=== PATIENT | male | born 1995 | race Caucasian/White ===

== ENCOUNTER → 2020-07-10 12:05 | Outpatient (REF) | payer OTHER, SELFPAY ==
--- NOTE | 2020-07-10 12:12 | ECG_ITS ---
Test Reason : OPIOD ABUSE Blood Pressure : / mmHG Vent. Rate : 072 BPM Atrial Rate : 072 BPM P-R Int : 144 ms QRS Dur : 082 ms QT Int : 410 ms P-R-T Axes : 042 070 006 degrees QTc Int : 448 ms Normal sinus rhythm with sinus arrhythmia T wave abnormality, consider anterior ischemia Abnormal ECG When compared with ECG of 05-JAN-2019 13:24, No significant changes seen Referred By: Ang Hutchinson Electronically Signed By:Kris Fisher
== END ==
LOC: HO.CARD 12:05
PROVIDERS: PCP Internal Medicine; Visit Provider Internal Medicine
DX: F11.11 Opioid abuse, in remission (principal)
CPT/HCPCS: 93005

== ENCOUNTER 2020-10-01 12:17 | Outpatient (REF) | payer OTHER, SELFPAY ==
--- NOTE | ~2020-10-01 | XR_ITS ---
EXAMINATION: XR SHOULDER, LEFT CLINICAL INFORMATION: Left shoulder pain. COMPARISON: None TECHNIQUE: Three views of the left shoulder. FINDINGS: There is no evidence of acute fracture or dislocation of the left shoulder. No evidence of calcific tendinitis. No glenohumeral joint abnormality is appreciated. No widening of the coracoclavicular space is seen. XR/XR shoulder LT min 2V IMPRESSION: No bony abnormality of the left shoulder appreciated.
== END 2020-10-01 12:18 | disposition home or self-care (01) ==
LOC: HO.HOSX 12:17
PROVIDERS: Visit Provider Physician Assistant
DX: M25.512 Pain in left shoulder (principal); M77.8 Other enthesopathies, not elsewhere classified
CPT/HCPCS: 73030; 99202

== ENCOUNTER 2021-12-19 13:17 | Outpatient (REF) | payer OTHER, SELFPAY ==
[2021-12-19 13:44] LABS: MANUAL DIFF FLAG NO
--- NOTE | 2021-12-19 13:49 | ECG_ITS ---
Test Reason : qtc prolongnation Blood Pressure : / mmHG Vent. Rate : 074 BPM Atrial Rate : 074 BPM P-R Int : 160 ms QRS Dur : 088 ms QT Int : 444 ms P-R-T Axes : 071 072 027 degrees QTc Int : 492 ms Normal sinus rhythm Nonspecific T wave abnormality Abnormal ECG When compared with ECG of 10-JUL-2020 12:16, No significant change was found Referred By: Ang Hutchinson Electronically Signed By:GRISEL CHENG MD
[2021-12-19 13:59] LABS: Basophils Percent Auto 0.6 % (0-2); Eosinophils Absolute Auto 0.1 X10*3/uL (0.0-0.4); Eosinophils Percent Auto 1.6 % (0-4); Hematocrit 40.4 % (42.0-52.0); Hemoglobin 13.5 g/dl (14.0-18.0); Imm Gran Abs Auto 0.01 X10*3/uL (0.00-0.03); Imm Gran Pct Auto 0.2 % (0.0-0.4); Lymphocytes Percent Auto 20.8 % (20-40); Mean Corpuscular HGB Conc 33.4 g/dl (31.0-36.0); Mean Corpuscular Hemoglobin 27.8 pg (27.0-33.0); Mean Corpuscular Volume 83.1 fL (80.0-98.0); Mean Platelet Volume 9.4 fL (9.4-12.4); Monocytes Absolute Auto 0.4 X10*3/uL (0.1-1.2); Monocytes Percent Auto 8.3 % (2-11); Neutrophils Absolute Auto 3.4 x10*3/uL (2.0-8.3); Neutrophils Percent Auto 68.5 % (45-73); Platelet Count 179 X10*3/uL (160-400); Red Blood Count 4.86 X10*6/uL (4.60-5.80); Red Cell Distribution Width 12.9 % (11.0-16.0)
[2021-12-19 14:32] LABS: Appearance Urine Clear; Color Urine Yellow; Glucose Urine UA Negative (Negative); Leukocyte Esterase Urine Negative (Negative); Nitrite Urine Negative (Negative); PH 6.5 (5.0-9.0); Urine Blood Negative (Negative); Urine Ketones Negative (Negative); Urine Protein Negative (Neg-Trace)
[2021-12-19 14:36] LABS: Alanine Aminotransferase 9 U/L (0-40); Albumin Level 4.4 g/dL (3.5-5.0); Alkaline Phosphatase 59 U/L (39-117); Anion Gap 12 (12-20); Aspartate Amino Transferase 13 U/L (5-37); Bilirubin Total 0.5 mg/dL (0.0-1.0); Blood Urea Nitrogen 9 mg/dL (9-16); Calcium 9.4 mg/dL (8.4-10.2); Carbon Dioxide 29 mmol/L (22-29); Chloride 103 mmol/L (96-108); Cholesterol 169 mg/dL; Estimated Glomerular Filt Rate > 60; Glucose Fasting 84 mg/dL (60-99); HDL Cholesterol 34 mg/dL; LDL Cholesterol Calculated 123 mg/dl; Potassium 4.3 mmol/L (3.3-5.1); Sodium 140 mmol/L (135-145); Total Protein 6.8 g/dL (6.5-8.0); Triglycerides 63 mg/dL
[2021-12-19 14:57] LABS: TSH reflex Free T4 0.34 uIU/mL (0.32-4.0); Vitamin D 25-OH Total 40.5 ng/mL (>30)
== END 2021-12-19 13:18 | disposition home or self-care (01) ==
LOC: HO.LAB 13:17
PROVIDERS: PCP Internal Medicine; Visit Provider Internal Medicine
DX: Z00.00 Encounter for general adult medical examination without abnormal findings (principal); E55.9 Vitamin D deficiency, unspecified; E78.00 Pure hypercholesterolemia, unspecified; F11.90 Opioid use, unspecified, uncomplicated
CPT/HCPCS: 36415; 80053; 80061; 81003; 82306; 84443; 85025; 93005

== ENCOUNTER → 2022-07-02 12:33 | Outpatient (REF) | payer OTHER, SELFPAY ==
--- NOTE | 2022-07-02 13:08 | ECG_ITS ---
Test Reason : F11.90 Blood Pressure : / mmHG Vent. Rate : 057 BPM Atrial Rate : 057 BPM P-R Int : 138 ms QRS Dur : 082 ms QT Int : 464 ms P-R-T Axes : 031 051 042 degrees QTc Int : 451 ms Sinus bradycardia T wave abnormality, consider anterior ischemia Abnormal ECG When compared with ECG of 19-DEC-2021 13:48, Inverted T waves have replaced nonspecific T wave abnormality in Anterior leads Referred By: Ang Hutchinson Electronically Signed By:BRENDA HANSON MD
== END ==
LOC: HO.CARD 12:33
PROVIDERS: PCP Internal Medicine; Visit Provider Internal Medicine
DX: F11.90 Opioid use, unspecified, uncomplicated (principal)
CPT/HCPCS: 93005

== ENCOUNTER → 2022-07-20 15:07 | Outpatient (BNVA) | payer OTHER, SELFPAY | PROVIDERS: PCP Internal Medicine; Visit Provider Nurse Practitioner Family | DX: N50.812 Left testicular pain (principal); N45.1 Epididymitis | CPT/HCPCS: 99202 ==

== ENCOUNTER 2022-08-11 12:25 | Outpatient (REF) | payer OTHER, SELFPAY ==
--- NOTE | ~2022-08-11 | US_ITS ---
EXAMINATION: US SCROTUM CLINICAL INFORMATION: Testicular pain. COMPARISON: 08/26/2012 TECHNIQUE: A sonogram of the scrotum was performed assessing aguero-scale appearance and color Doppler flow. Spectral Doppler analysis of the arterial and venous flow were performed in the testes bilaterally. FINDINGS: RIGHT: Right testicle measures 4.5 x 2.0 x 2.5 cm, volume 11.8 mL. No focal testicular parenchymal lesions are visualized. Spectral Doppler analysis of the arterial and venous flow is normal in the right testis. Right epididymal head is normal in size. No right hydrocele or varicocele is seen. Right epididymal Doppler flow is normal. LEFT: Left testicle measures 4.6 x 2.1 x 3.2 cm, volume 16.2 mL. No focal testicular parenchymal lesions are visualized. Spectral Doppler analysis of the arterial and venous flow is normal in the left testis. 2 x 1 x 1 mm left testicular calcification. Left epididymal head is normal in size. No left hydrocele is seen. Left epididymal Doppler flow is normal. Prominent scrotal vessels bilaterally, none meeting size criteria for varicocele. US/US scrotum IMPRESSION: 2 mm left testicular microcalcification, otherwise unremarkable testes. No acute pathology recognized bilaterally.
== END 2022-08-11 12:26 | disposition home or self-care (01) ==
LOC: HO.US 12:25
PROVIDERS: PCP Internal Medicine; Visit Provider Nurse Practitioner Family
DX: N50.819 Testicular pain, unspecified (principal)
CPT/HCPCS: 76870

== ENCOUNTER → 2022-08-12 13:14 | Outpatient (BNVA) | payer OTHER, SELFPAY | PROVIDERS: PCP Internal Medicine; Visit Provider Nurse Practitioner Family | DX: N50.812 Left testicular pain (principal) | CPT/HCPCS: 99212 ==

== ENCOUNTER 2022-12-18 12:18 | Outpatient (REF) | payer OTHER, SELFPAY ==
--- NOTE | ~2022-12-18 | US_ITS ---
EXAMINATION: US RETROPERITONEAL LIMITED (AORTA) CLINICAL INFORMATION: Family history of ischemic heart disease and other diseases of the circulatory system. COMPARISON: None available. TECHNIQUE: Gonzalez-scale, color Doppler and spectral Doppler evaluation of the abdominal aorta. Technically difficult study secondary to bowel gas. FINDINGS: The aorta is normal. The measurements of the aorta in maximum AP and transverse dimensions respectively are as follows: Proximal: 2.2 x 2.4 cm. Mid: 1.7 x 2.1 cm. Distal: 1.9 x 1.9 cm. PSV: 87.7 cm/s. The measurements of the common iliac arteries in maximum AP and TRV dimensions are as follows: Right: AP: 1.3 cm. TRV: 1.2 cm. Left: AP: 1.1 cm. TRV: 1.4 cm. US/US aorta IMPRESSION: Unremarkable examination, without phuong aneurysm noted.
--- NOTE | 2022-12-18 12:25 | ECG_ITS ---
Test Reason : ODIOD USE Blood Pressure : / mmHG Vent. Rate : 066 BPM Atrial Rate : 066 BPM P-R Int : 152 ms QRS Dur : 084 ms QT Int : 430 ms P-R-T Axes : 052 051 015 degrees QTc Int : 450 ms Normal sinus rhythm T wave abnormality, consider anterior ischemia Abnormal ECG When compared with ECG of 02-JUL-2022 13:15, No significant change was found Referred By: Ang Hutchinson Electronically Signed By:GRISEL CHENG MD
[2022-12-18 12:47] LABS: MANUAL DIFF FLAG NO
[2022-12-18 13:12] LABS: Basophils Percent Auto 0.3 % (0-2); Eosinophils Absolute Auto 0.1 X10*3/uL (0.0-0.4); Eosinophils Percent Auto 0.9 % (0-4); Hematocrit 41.5 % (42.0-52.0); Hemoglobin 13.7 g/dl (14.0-18.0); Imm Gran Abs Auto 0.02 X10*3/uL (0.00-0.03); Imm Gran Pct Auto 0.3 % (0.0-0.4); Lymphocytes Absolute Auto 0.8 X10*3/uL (1.2-4.9); Lymphocytes Percent Auto 13.8 % (20-40); Mean Corpuscular Hemoglobin 27.8 pg (27.0-33.0); Mean Corpuscular Volume 84.3 fL (80.0-98.0); Mean Platelet Volume 9.1 fL (9.4-12.4); Monocytes Absolute Auto 0.7 X10*3/uL (0.1-1.2); Monocytes Percent Auto 12.1 % (2-11); Neutrophils Absolute Auto 4.2 x10*3/uL (2.0-8.3); Neutrophils Percent Auto 72.6 % (45-73); Platelet Count 173 X10*3/uL (160-400); Red Blood Count 4.92 X10*6/uL (4.60-5.80); Red Cell Distribution Width 12.8 % (11.0-16.0); White Blood Count 5.7 X10*3/uL (4.8-10.8)
[2022-12-18 13:46] LABS: Appearance Urine Clear; Color Urine Yellow; Glucose Urine UA Negative (Negative); Leukocyte Esterase Urine Negative (Negative); Nitrite Urine Negative (Negative); Specific Gravity - Urine >= 1.030 (1.005-1.025); Urine Blood Negative (Negative); Urine Ketones Trace mg/dL (Negative); Urine Protein Trace mg/dL (Neg-Trace)
[2022-12-18 14:07] LABS: Alanine Aminotransferase 10 U/L (0-40); Albumin Level 4.3 g/dL (3.5-5.0); Alkaline Phosphatase 61 U/L (39-117); Anion Gap 12 (12-20); Aspartate Amino Transferase 13 U/L (5-37); Bilirubin Total 0.4 mg/dL (0.0-1.0); Blood Urea Nitrogen 11 mg/dL (9-16); Calcium 9.6 mg/dL (8.4-10.2); Carbon Dioxide 27 mmol/L (22-29); Chloride 104 mmol/L (96-108); Cholesterol 175 mg/dL (<200); Estimated Glomerular Filt Rate > 60; Glucose Fasting 86 mg/dL (60-99); HDL Cholesterol 33 mg/dL (>40); LDL Cholesterol Calculated 132 mg/dL (<100); Potassium 4.2 mmol/L (3.3-5.1); Sodium 139 mmol/L (135-145); Total Protein 7.2 g/dL (6.5-8.0); Triglycerides 51 mg/dL (<150)
[2022-12-18 14:28] LABS: TSH reflex Free T4 0.68 uIU/mL (0.32-4.0); Vitamin D 25-OH Total 49.4 ng/mL (>30)
== END 2022-12-18 12:19 | disposition home or self-care (01) ==
LOC: HO.US 12:18
PROVIDERS: PCP Internal Medicine; Visit Provider Internal Medicine
DX: E78.00 Pure hypercholesterolemia, unspecified (principal); R30.0 Dysuria; E55.9 Vitamin D deficiency, unspecified; F11.90 Opioid use, unspecified, uncomplicated; Z00.00 Encounter for general adult medical examination without abnormal findings; Z82.49 Family history of ischemic heart disease and other diseases of the circulatory system
CPT/HCPCS: 36415; 76775; 80053; 80061; 81003; 82306; 84443; 85025; 93005

== ENCOUNTER 2023-06-04 13:13 | Outpatient (AMB) | payer OTHER, SELFPAY ==
--- NOTE | 2023-06-04 13:18 | MHC.PC.OV ---
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 Accompanied by: Mother Allergies latex [LATEX] Allergy (Unknown, Verified 06/04/23 13:54) RASH red dye [RED DYE] Allergy (Unknown, Verified 06/04/23 13:54) HIVES Medication List - Last Reconciled 06/04/23 by Ang Hutchinson MD albuterol sulfate 90 mcg/actuation 2 puffs inhalation Q6H PRN clonazepam 1 - 2 mg (1 - 2 x 1 mg) PO BEDTIME PRN 30 days fluticasone propionate 110 mcg/actuation (Flovent HFA) 1 puff inhalation BID 30 days gabapentin Take 1 tablet at 6 am, 1.5 tablet at 1 PM and 2 tablets at bedtime orally 3 times a day; 30 days methadone 140 mg PO DAILY nystatin 1 appl topical TID 10 days polyethylene glycol 3350 (Miralax) 17 grams PO DAILY 30 days venlafaxine ER 150 mg PO DAILY 30 days Tobacco use date assessed: 06/04/23 Dental Screening Dental Screen Date: 11/27/22 HPI 6mon F/U HPI Details Patient comes in today for his follow up visit States that he recently accidentally swallowed one of his crowns that came loose by accident - he goes to [facility] for his dental follow up Adds that he accidentally fell a few days ago and his lower back hit his toilet when he fell - states that he still has some pain and bruising over his lower back but thinks that his symptoms have been gradually improving lately Patient declines offer to send him for lumbar spine x-rays at this time - he is advised to call if his lower back does not feel any better in 1 to 2 weeks States that he feels okay otherwise He denies any headaches or dizziness Denies any chest pains, no SOB No nausea/vomiting, no abdominal pain No change in bowel habits noted - states that his constipation has been well-controlled on his current Rx regimen lately [facility] Medical History Depression Anxiety Asthma Overweight (BMI 25.0-29.9) History of undescended testicle Chronic constipation History of opioid abuse Surgical History History of surgery on right wrist (2018) History of varicocele History of ear surgery (2007) Family History Father Alive and well Mother Hypertension Hypothyroidism Hypercholesteremia Brother Alive and well Maternal Grandfather Myocardial infarction Family/Other Hypertension Diabetes Thyroid disease Maternal Grandmother FH: pancreatic cancer Social History Housing: Apartment Alcohol intake: never Patient Tobacco Use Status: Current everyday Tobacco user Cigarettes Per Day: 5 e-Cigarette/Vaping Use: Never Used Second Hand Smoke Exposure: Yes service: No Current occupational status: disabled Cognitive needs: No Hearing needs: No Vision needs: Yes Questionnaire PHQ-9 Over the last 2 weeks, how often have you been bothered by any of the following problems? 1. Little interest or pleasure in doing things: more than half the days 2. Feeling down, depressed, or hopeless: more than half the days 3. Trouble falling or staying asleep, or sleeping too much: nearly every day 4. Feeling tired or having little energy: more than half the days 5. Poor appetite or overeating: nearly every day 6. Feeling bad about yourself - or that you are a failure or have let yourself or your family down: more than half the days 7. Trouble concentrating on things, such as reading the newspaper or watching television: nearly every day 8. Moving or speaking so slowly that other people could have noticed. Or the opposite - being so fidgety or restless that you have been moving around a lot more than usual: more than half the days 9. Thoughts that you would be better off or of hurting yourself in some way: not at all Total score: 19 Depression Screening Interpretation: Positive Depression Screening Follow-up: Existing condition and In treatment Depression Screening Done: Yes 38463 - PHQ-9 Billing: Yes Source: Developed by Drs. Davion Summers, Hayley Gonzalez, Edis Knott and colleagues, with an educational kathleen from [employer]. Thrive Questionnaire Date Thrive assessed: 06/04/23 I am a: Patient What is your living situation today?: I have a steady place to live Within the past 12 months, did the food you bought not last and you didn't have the money to get more?: Never true Within the past 12 months, did you worry whether your food would run out before you got money to buy more?: Never true Do you have trouble paying for medicines?: No Do you have trouble getting transportation to medical appointments?: No Do you have trouble paying your heating and electricity bill?: No Do you have trouble taking care of your child, family member or friend?: No Do you have trouble with day-to-day activities such as bathing, preparing meals, shopping, managing finances, etc.?: No Are you currently unemployed and looking for a job?: No Are you interested in more education?: No Please select the resources that you would like help with: None Currently or been in a relationship where the following occur: no concerns reported THRIVE Score: 0 AUDIT C Alcohol Use Questionnaire (AUDIT-C) 1. How often do you have a drink containing alcohol?: Never 3. How often do you have six or more drinks on one occasion?: Never Total Score: 0 Score Reviewed/Action Taken: Yes FROYLAN-7 AMB Questionnaire FROYLAN-7 Date FROYLAN - 7 assessed: 06/04/23 Feeling nervous, anxious, or on edge: 3 = Nearly every day Not being able to stop or control worryin = Nearly every day Worrying too much about different things: 3 = Nearly every day Trouble relaxin = Nearly every day Being so restless that it is hard to sit still: 2 = More than half the days Becoming easily annoyed or irritable: 2 = More than half the days Feeling afraid as if something awful might happen: 2 = More than half the days Total FROYLAN-7 score (0-4 normal; 5-9 mild; 10-14 moderate; 15-21 severe): 18 Source: Developed by Drs. Davion Summers, Hayley Gonzalez, Edis Knott and colleagues, with an educational kathleen from [employer]. FROYLAN-7 Assessment Billing FROYLAN-7 Assessment Tool: FROYLAN-7 Assessment 27968 Review of Systems Const Denies chills, Denies fatigue, Denies fever(s) and Denies headache(s) ENT Denies dysphagia, Denies dizziness, Denies otalgia, Denies headache(s), Denies neck pain, Denies odynophagia and Denies sore throat Card Denies chest pain, Denies palpitations and Denies dyspnea Resp Denies cough and Denies dyspnea GI Denies abdominal pain, Denies constipation (better regulated on current Rx), Denies dysphagia, Denies heartburn, Denies diarrhea, Denies nausea, Denies odynophagia and Denies vomiting Denies dysuria, Denies nocturia and Denies urinary frequency Musc Reports back pain (over the lower back from recent fall - see HPI) and Denies neck pain Skin/Breast Denies rash Neuro Denies dizziness and Denies headache(s) Endo Denies fatigue and Denies palpitations Physical exam (Primary Care) Vital Signs: Last Vital Signs Pulse 94 06/04/23 13:19 Resp 16 06/04/23 13:19 BP 120/82 06/04/23 13:19 Pulse Ox 100 06/04/23 13:19 Oxygen Delivery Method Room Air 06/04/23 13:19 BMI result Body Mass Index 26.3 Tobacco/Smoking Status: Tobacco use Status Tobacco use date assessed 06/04/23 06/04/23 13:51 Patient Tobacco Use Status Current everyday Tobacco 06/04/23 13:21 e-Cigarette/Vaping Use Never Used 06/04/23 13:21 PHQ-9: PHQ-9 Score PHQ-9: Total score 19 06/07/23 04:18 Depression Screening Interpretation: Positive Depression Screening Follow-up: Existing condition and In treatment Thrive Assessment: Date of Thrive Assessment Date Thrive assessed 06/04/23 06/04/23 13:49 Currently or been in a relationship where the following occur: no concerns reported Const General: no acute distress and alert HENMT Ears: TM's normal bilaterally and EAC's normal Throat: Yes posterior oropharynx normal and Yes tonsils normal (no TP congestion) Neck Neck: Yes no lymphadenopathy and Yes supple Thyroid: Thyroid normal Resp Auscultation: clear to auscultation bilaterally, no rales and no wheezes Cardio Rate: regular rate Rhythm: regular rhythm Heart sounds: no murmurs GI Palpation (GI): Soft to palpation and nontender Auscultation: normal bowel sounds Back/Spine/Pelvis Thoracic/Lumbar Spine: paraspinal muscle tenderness bilaterally in the mid lumbar and in the lower lumbar Skin General skin exam: no rashes or lesions noted Extrem General: Yes no clubbing, cyanosis or edema Assessment and Plan Assessment & Plan (1) Asthma: Code(s): J45.909 - Unspecified asthma, uncomplicated Qualifiers: Asthma severity: moderate Asthma persistence: persistent Asthma complication type: uncomplicated Qualified Code(s): J45.40 - Moderate persistent asthma, uncomplicated Plan: Stable/controlled Continue Flovent HFA 110 mcg 1 inhalation BID and Albuterol HFA 1 to 2 inhalations Q 6 hours PRN (2) Constipation due to opioid therapy: Code(s): K59.03 - Drug induced constipation; T40.2X5A - Adverse effect of other opioids, initial encounter Plan: Better controlled on his current Rx regimen - is most likely related to his Methadone Rx He is encouraged again to maintain increased oral fluids and dietary fiber Continue MiraLax 17 gm QD (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, unspecified, uncomplicated Plan: Continue Methadone 140 mg QD Follow up with [facility] as scheduled Follow up EKG done back in November 2022 revealed NSR with no acute ST-T wave changes - is mostly unchanged from previous (4) Low back pain: Code(s): M54.50 - Low back pain, unspecified Qualifiers: Chronicity: acute Back pain laterality: bilateral Sciatica presence: without sciatica Qualified Code(s): M54.50 - Low back pain, unspecified Plan: Is mostly due to his fall a few days ago (see HPI) Patient feels that his low back pain is gradually easing up and declines offer to send him for lumbar spine x-rays at this time - he is advised that he can call for x-rays if his lower back does not feel any better over the next 1 to 2 weeks (5) Family history of abdominal aortic aneurysm: Code(s): Z82.49 - Family history of ischemic heart disease and other diseases of the circulatory system Plan: Patient is reassured that his abdominal aorta US done back in November 2022 came back completely normal (6) Anxiety: Code(s): F41.9 - Anxiety disorder, unspecified Plan: Continue Clonazepam 1 mg 1 to 2 tablets Q HS PRN (7) Depression: Code(s): F32.A - Depression, unspecified Qualifiers: Depression Type: major depressive disorder Major depression recurrence: recurrent Active/Remission status: currently active Major depression episode severity: unspecified Qualified Code(s): F33.9 - Major depressive disorder, recurrent, unspecified Plan: Continue Venlafaxine ER 150 mg QD and Gabapentin 600 mg 1 tablet at 6 am, 1.5 tablets at 1 PM and 2 tablets at bedtime orally 3 times a day He is currently still looking for a new psychiatrist (was discharged by his previous psychiatrist last year supposedly for frequent no-shows ) (8) Overweight (BMI 25.0-29.9): Code(s): E66.3 - Overweight Plan: Reinforced diet/exercise as tolerated/lose weight Plan To return in 6 months for his annual physical examination He is instructed to get his (follow up) labs done before he returns in 6 months for his annual exam Orders: Orders Complete Blood Count Auto Diff 6 Months D64.9 - Anemia, unspecified Comprehensive [place]. Panel Fast 6 Months E78.00 - Pure hypercholesterolemia, unspecified Lipid Panel 6 Months E78.00 - Pure hypercholesterolemia, unspecified Vitamin D 25-OH Total 6 Months E55.9 - Vitamin D deficiency, unspecified TSH reflex Free T4 6 Months E78.00 - Pure hypercholesterolemia, unspecified UA CC w/rflx Micro + Cult 6 Months R30.0 - Dysuria Coding Level of Care Code Est Pt Level 4 (60621) Diagnoses Moderate persistent asthma without complication J45.40 Asthma severity: moderate Asthma persistence: persistent Asthma complication type: uncomplicated Constipation due to opioid therapy K59.03; T40.2X5A 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 Acute bilateral low back pain without sciatica M54.50 Chronicity: acute Back pain laterality: bilateral Sciatica presence: without sciatica Family history of abdominal aortic aneurysm Z82.49 Anxiety F41.9 Episode of recurrent major depressive disorder, unspecified depression episode severity F33.9 Depression Type: major depressive disorder Major depression recurrence: recurrent Active/Remission status: currently active Major depression episode severity: unspecified Overweight (BMI 25.0-29.9) E66.3 Additional Codes FROYLAN-7 Assessment Billing - FROYLAN-7 Assessment Tool: FROYLAN-7 Assessment 55696 ([id number])
[2023-06-04 13:19] VITALS: BP 120/82; PULSE 94; RESP 16; O2SAT 100; BMI 26.3
== END 2023-06-04 14:05 | disposition home or self-care (01) ==
PROVIDERS: PCP Internal Medicine; Visit Provider Internal Medicine
DX: J45.40 Moderate persistent asthma, uncomplicated (principal); K59.03 Drug induced constipation; F33.9 Major depressive disorder, recurrent, unspecified; T40.2X5A Adverse effect of other opioids, initial encounter; F11.90 Opioid use, unspecified, uncomplicated; M54.50 Low back pain, unspecified; Z82.49 Family history of ischemic heart disease and other diseases of the circulatory system; F41.9 Anxiety disorder, unspecified; E66.3 Overweight
CPT/HCPCS: 99214

== ENCOUNTER 2023-12-10 13:01 | Outpatient (AMB) | payer OTHER, SELFPAY ==
[2023-12-10 13:02] VITALS: BP 112/80; PULSE 57; O2SAT 98; BMI 26.5
--- NOTE | 2023-12-10 13:02 | MHC.PC.OV ---
Vital Signs 12/10/23 13:02 Height 5 ft 7 in Weight 169 lb 8 oz BMI 26.5 BP 112/80 Blood Pressure Location Lt brachial Position Sitting Pulse 57 Pulse Source Pulse Oximeter Pulse Oximetry (%) 98 Oxygen Delivery Method Room Air Intake Visit Reasons: Annual Exam Field Support Representative Required: No Accompanied by: Self / Same As Patient Allergies latex [LATEX] Allergy (Unknown, Verified 12/10/23 13:38) RASH red dye [RED DYE] Allergy (Unknown, Verified 12/10/23 13:38) HIVES Medication List - Last Reconciled 12/10/23 by Ang Hutchinson MD albuterol sulfate 90 mcg/actuation 2 puffs inhalation Q6H PRN clonazepam 1 - 2 mg (1 - 2 x 1 mg) PO BEDTIME PRN 30 days fluticasone propionate 110 mcg/actuation (Flovent HFA) 1 puff inhalation BID 30 days gabapentin Take 1 tablet at 6 am, 1.5 tablet at 1 PM and 2 tablets at bedtime orally 3 times a day; 30 days methadone 140 mg PO DAILY nystatin 1 appl topical TID 10 days polyethylene glycol 3350 (Miralax) 17 grams PO DAILY 30 days venlafaxine ER 150 mg PO DAILY 30 days Tobacco use date assessed: 12/10/23 Dental Screening Dental Screen Date: 12/10/23 Did you have a dental visit in the last 12 months?: Yes Did you have a dental problem in the last 6 months where you did not have access to dental care?: No Was dental information given to patient?: Patient has dentist HPI Annual Exam HPI Details Patient comes in today for his annual physical examination States that he feels okay Denies any headaches or dizziness Denies any chest pains, no SOB No nausea/vomiting, no abdominal pain No change in bowel habits noted - still has on and off constipation but his current Rx helps with his symptoms He denies any acute urinary symptoms Needs his Miralax Rx refilled He has not yet gotten his previously ordered labs done yet - states that he will try to get these done [facility] He also needs to have an EKG done again for monitoring purposes due to his being on Methadone [facility] Medical History Depression Anxiety Asthma Overweight (BMI 25.0-29.9) History of undescended testicle Chronic constipation History of opioid abuse Surgical History History of surgery on right wrist (2018) History of varicocele History of ear surgery (2007) Family History Father Alive and well Mother Hypertension Hypothyroidism Hypercholesteremia Brother Alive and well Maternal Grandfather Myocardial infarction Family/Other Hypertension Diabetes Thyroid disease Maternal Grandmother FH: pancreatic cancer Social History Housing: Apartment Alcohol intake: never Patient Tobacco Use Status: Current everyday Tobacco user Cigarettes Per Day: 5 e-Cigarette/Vaping Use: Never Used Second Hand Smoke Exposure: Yes service: No Current occupational status: disabled Cognitive needs: No Hearing needs: No Vision needs: Yes Questionnaire PHQ-9 Over the last 2 weeks, how often have you been bothered by any of the following problems? 1. Little interest or pleasure in doing things: more than half the days 2. Feeling down, depressed, or hopeless: more than half the days 3. Trouble falling or staying asleep, or sleeping too much: nearly every day 4. Feeling tired or having little energy: more than half the days 5. Poor appetite or overeating: nearly every day 6. Feeling bad about yourself - or that you are a failure or have let yourself or your family down: more than half the days 7. Trouble concentrating on things, such as reading the newspaper or watching television: nearly every day 8. Moving or speaking so slowly that other people could have noticed. Or the opposite - being so fidgety or restless that you have been moving around a lot more than usual: more than half the days 9. Thoughts that you would be better off or of hurting yourself in some way: not at all Total score: 19 Depression Screening Interpretation: Positive Depression Screening Follow-up: Existing condition and In treatment Depression Screening Done: Yes 91626 - PHQ-9 Billing: Yes Source: Developed by Drs. Davion Summers, Hayley Gonzalez, Edis Knott and colleagues, with an educational kathleen from [employer]. Thrive Questionnaire Date Thrive assessed: 12/10/23 I am a: Patient What is your living situation today?: I have a steady place to live Within the past 12 months, did the food you bought not last and you didn't have the money to get more?: Never true Within the past 12 months, did you worry whether your food would run out before you got money to buy more?: Never true Do you have trouble paying for medicines?: No Do you have trouble getting transportation to medical appointments?: No Do you have trouble paying your heating and electricity bill?: No Do you have trouble taking care of your child, family member or friend?: No Do you have trouble with day-to-day activities such as bathing, preparing meals, shopping, managing finances, etc.?: No Are you currently unemployed and looking for a job?: No Are you interested in more education?: No Please select the resources that you would like help with: None Currently or been in a relationship where the following occur: No concerns reported THRIVE Score: 0 AUDIT C Alcohol Use Questionnaire (AUDIT-C) 1. How often do you have a drink containing alcohol?: Never 3. How often do you have six or more drinks on one occasion?: Never Total Score: 0 Score Reviewed/Action Taken: Yes FROYLAN-7 AMB Questionnaire FROYLAN-7 Date FROYLAN - 7 assessed: 12/10/23 Feeling nervous, anxious, or on edge: 3 = Nearly every day Not being able to stop or control worryin = Nearly every day Worrying too much about different things: 3 = Nearly every day Trouble relaxin = Nearly every day Being so restless that it is hard to sit still: 2 = More than half the days Becoming easily annoyed or irritable: 2 = More than half the days Feeling afraid as if something awful might happen: 2 = More than half the days Total FROYLAN-7 score (0-4 normal; 5-9 mild; 10-14 moderate; 15-21 severe): 18 Source: Developed by Drs. Davion Summers, Hayley Gonzalez, dEis Knott and colleagues, with an educational kathleen from [employer]. FROYLAN-7 Assessment Billing FROYLAN-7 Assessment Tool: FROYLAN-7 Assessment 78917 Review of Systems Const Denies chills, Denies fatigue, Denies fever(s), Denies headache(s), Denies malaise and Denies weakness Eyes Denies blurry vision, Denies change in vision, Denies irritation and Denies itchy eyes ENT Denies dysphagia, Denies dizziness, Denies otalgia, Denies headache(s), Denies nasal congestion, Denies neck pain, Denies odynophagia and Denies sore throat Card Denies chest pain, Denies rapid heart rate, Denies irregular heart rhythm, Denies palpitations and Denies dyspnea Resp Denies chest congestion, Denies cough, Denies dyspnea and Denies wheezing GI Denies abdominal pain, Denies bloating, Reports constipation, Denies dysphagia, Denies heartburn, Denies diarrhea, Denies nausea, Denies odynophagia and Denies vomiting Denies hematuria, Denies difficulty urinating, Denies dysuria, Denies urinary frequency and Denies urinary urgency Musc Denies back pain, Denies arthralgias, Denies joint swelling, Denies muscle weakness and Denies neck pain Skin/Breast Denies change in pigmentation, Denies lesions, Denies rash and Denies unusual bruising Neuro Denies dizziness, Denies headache(s), Denies paresthesias and Denies weakness Endo Denies fatigue and Denies palpitations Aller/Immun Denies itchy eyes and Denies wheezing Physical exam (Primary Care) Vital Signs: Last Vital Signs Pulse 57 12/10/23 13:02 BP 112/80 12/10/23 13:02 Pulse Ox 98 12/10/23 13:02 Oxygen Delivery Method Room Air 12/10/23 13:02 BMI result Body Mass Index 26.5 Tobacco/Smoking Status: Tobacco use Status Tobacco use date assessed 12/10/23 12/10/23 13:13 Patient Tobacco Use Status Current everyday Tobacco 12/10/23 13:13 e-Cigarette/Vaping Use Never Used 12/10/23 13:13 PHQ-9: PHQ-9 Score PHQ-9: Total score 19 12/10/23 13:44 Depression Screening Interpretation: Positive Depression Screening Follow-up: Existing condition and In treatment Thrive Assessment: Date of Thrive Assessment Date Thrive assessed 12/10/23 12/10/23 13:13 Currently or been in a relationship where the following occur: No concerns reported Const General: no acute distress, alert and awake Orientation/consciousness: patient oriented x3 HENOH Head: Yes normocephalic and Yes atraumatic Ears: external ears normal, TM's normal bilaterally and EAC's normal General nose exam: No nasal discharge present Face and sinus: Yes normal facial exam and Yes sinuses nontender Teeth and gingiva: dentition normal Throat: Yes posterior oropharynx normal and Yes tonsils normal (no TP congestion) Eyes Eyelids: Yes eyelids normal Conjunctivae: conjunctivae normal Pupils: Equal, round and reactive pupils present EOM: EOMs intact bilaterally Neck Neck: Yes no lymphadenopathy and Yes supple Thyroid: Thyroid normal Resp Auscultation: clear to auscultation bilaterally, no rales and no wheezes Cardio Rate: regular rate Rhythm: regular rhythm Heart sounds: no murmurs GI Palpation (GI): Soft to palpation, nontender and No hepatosplenomegaly present Auscultation: normal bowel sounds General: Yes no CVA tenderness Back/Spine/Pelvis Back: no CVA tenderness Thoracic/Lumbar Spine: thoracic and lumbar spine normal to inspection Skin Lesions: no lesions Rashes: no rashes Neuro General: patient oriented x3, moves all extremities, no focal motor deficits and CN's II-XI intact bilaterally Cranial nerves: Yes Equal, round and reactive pupils present Cognition (Neuro): normal cognition Gait exam (Neuro): Normal gait present Extrem General: Yes no clubbing, cyanosis or edema Coding Level of Care Code Est Pt Prev Care 18-39y(42456) Diagnoses Annual physical exam Z00.00 Moderate persistent asthma without complication J45.40 Asthma severity: moderate Asthma persistence: persistent Asthma complication type: uncomplicated Constipation due to opioid therapy K59.03; T40.2X5A 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 Anxiety F41.9 Episode of recurrent major depressive disorder, unspecified depression episode severity F33.9 Depression Type: major depressive disorder Major depression recurrence: recurrent Active/Remission status: currently active Major depression episode severity: unspecified Overweight (BMI 25.0-29.9) E66.3 Additional Codes FROYLAN-7 Assessment Billing - FROYLAN-7 Assessment Tool: FROYLAN-7 Assessment [id number] ([id number]) Assessment & Plan Assessment & Plan (1) Annual physical exam: Code(s): Z00.00 - Encounter for general adult medical examination without abnormal findings Category: Medical Plan: Check labs - patient is instructed to just use his previous lab orders (2) Asthma: Code(s): J45.909 - Unspecified asthma, uncomplicated Category: Medical Qualifiers: Asthma severity: moderate Asthma persistence: persistent Asthma complication type: uncomplicated Qualified Code(s): J45.40 - Moderate persistent asthma, uncomplicated Plan: Stable/controlled Continue Flovent HFA 110 mcg 1 inhalation BID and Albuterol HFA 1 to 2 inhalations Q 6 hours PRN (3) Constipation due to opioid therapy: Code(s): K59.03 - Drug induced constipation; T40.2X5A - Adverse effect of other opioids, initial encounter Category: Medical Plan: His constipation has been better controlled on his current Rx - is mostly related to his Methadone Rx He is encouraged again to increase his oral fluids and dietary fiber intake Continue MiraLax 17 gm QD - Rx refilled (4) Methadone use: Code(s): F11.90 - Opioid use, unspecified, uncomplicated Category: Medical Plan: Continue Methadone 140 mg QD Follow [facility] with [facility] as scheduled Will again send him for repeat EKG for continuing surveillance - is advised that he can get this done as well when he goes for his routine labs (5) Anxiety: Code(s): F41.9 - Anxiety disorder, unspecified Category: Medical Plan: Continue Clonazepam 1 mg 1 to 2 tablets Q HS PRN (6) Depression: Code(s): F32.A - Depression, unspecified Category: Medical Qualifiers: Depression Type: major depressive disorder Major depression recurrence: recurrent Active/Remission status: currently active Major depression episode severity: unspecified Qualified Code(s): F33.9 - Major depressive disorder, recurrent, unspecified Plan: Continue Venlafaxine ER 150 mg QD and Gabapentin 600 mg 1 tablet at 6 am, 1.5 tablets at 1 PM and 2 tablets at bedtime orally 3 times a day Follow-up with Psychiatry as scheduled (7) Overweight (BMI 25.0-29.9): Code(s): E66.3 - Overweight Category: Medical Plan: Reinforced diet/exercise as tolerated/lose weight Plan Follow up in 6 months Orders: Orders ECG 12 lead EKG 12/10/23 F11.90 - Opioid use, unspecified, uncomplicated Medications: Refilled polyethylene glycol 3350 (Miralax) 17 grams PO DAILY 30 days 510 grams 5RF
== END 2023-12-10 13:52 | disposition home or self-care (01) ==
PROVIDERS: PCP Internal Medicine; Visit Provider Internal Medicine
DX: Z00.00 Encounter for general adult medical examination without abnormal findings (principal); F33.9 Major depressive disorder, recurrent, unspecified; E66.3 Overweight; Z68.26 Body mass index [BMI] 26.0-26.9, adult; J45.40 Moderate persistent asthma, uncomplicated; K59.03 Drug induced constipation; T40.2X5A Adverse effect of other opioids, initial encounter; F11.90 Opioid use, unspecified, uncomplicated; F41.9 Anxiety disorder, unspecified

== ENCOUNTER → 2023-12-10 13:01 | Outpatient (BNVA) | payer OTHER, SELFPAY | PROVIDERS: PCP Internal Medicine; Visit Provider Internal Medicine | DX: Z00.00 Encounter for general adult medical examination without abnormal findings (principal); J45.40 Moderate persistent asthma, uncomplicated; K59.03 Drug induced constipation; F11.90 Opioid use, unspecified, uncomplicated; F41.9 Anxiety disorder, unspecified; F33.9 Major depressive disorder, recurrent, unspecified; E66.3 Overweight | CPT/HCPCS: 96127 ==

== ENCOUNTER → 2023-12-16 12:10 | Outpatient (REF) | payer OTHER, SELFPAY ==
--- NOTE | 2023-12-16 12:16 | ECG_ITS ---
Test Reason : opiod use F11.90 Blood Pressure : / mmHG Vent. Rate : 056 BPM Atrial Rate : 056 BPM P-R Int : 140 ms QRS Dur : 078 ms QT Int : 488 ms P-R-T Axes : 046 052 037 degrees QTc Int : 470 ms Sinus bradycardia Otherwise normal ECG When compared with ECG of 18-DEC-2022 12:23, No significant changes seen Referred By: Ang Hutchinson Electronically Signed By:OLINDA HERNANDEZ
== END ==
LOC: HO.CARD 12:10
PROVIDERS: PCP Internal Medicine; Visit Provider Internal Medicine
DX: F11.90 Opioid use, unspecified, uncomplicated (principal)
CPT/HCPCS: 93005

== ENCOUNTER → 2023-12-16 12:16 | Outpatient (BNV) | payer OTHER, SELFPAY | PROVIDERS: PCP Internal Medicine; Visit Provider Internal Medicine | DX: R00.1 Bradycardia, unspecified (principal) | CPT/HCPCS: 93010 ==

== ENCOUNTER 2024-03-17 10:19 | Outpatient (REF) | payer OTHER, SELFPAY ==
[2024-03-17 13:14] LABS: MANUAL DIFF FLAG NO
[2024-03-17 13:16] LABS: Appearance Urine Cloudy; Color Urine Yellow; Glucose Urine UA Negative (Negative); Leukocyte Esterase Urine Negative (Negative); Nitrite Urine Negative (Negative); PH 8.5 (5.0-9.0); Specific Gravity - Urine 1.015 (1.005-1.025); Urine Blood Negative (Negative); Urine Ketones Negative (Negative); Urine Protein Negative (Neg-Trace)
[2024-03-17 13:17] LABS: Basophils Percent Auto 0.5 % (0-2); Eosinophils Absolute Auto 0.1 X10*3/uL (0.0-0.4); Eosinophils Percent Auto 2.1 % (0-4); Hematocrit 41.9 % (42.0-52.0); Hemoglobin 13.7 g/dl (14.0-18.0); Imm Gran Abs Auto 0.01 X10*3/uL (0.00-0.03); Imm Gran Pct Auto 0.2 % (0.0-0.4); Lymphocytes Absolute Auto 1.1 X10*3/uL (1.2-4.9); Lymphocytes Percent Auto 26.9 % (20-40); Mean Corpuscular HGB Conc 32.7 g/dl (31.0-36.0); Mean Corpuscular Hemoglobin 27.9 pg (27.0-33.0); Mean Corpuscular Volume 85.3 fL (80.0-98.0); Mean Platelet Volume 11.3 fL (9.4-12.4); Monocytes Absolute Auto 0.5 X10*3/uL (0.1-1.2); Monocytes Percent Auto 11.6 % (2-11); Neutrophils Absolute Auto 2.5 x10*3/uL (2.0-8.3); Neutrophils Percent Auto 58.7 % (45-73); Platelet Count 142 X10*3/uL (160-400); Red Blood Count 4.91 X10*6/uL (4.60-5.80); Red Cell Distribution Width 13.4 % (11.0-16.0); White Blood Count 4.2 X10*3/uL (4.8-10.8)
[2024-03-17 14:08] LABS: Alanine Aminotransferase 12 U/L (0-40); Albumin Level 4.1 g/dL (3.5-5.0); Alkaline Phosphatase 73 U/L (39-117); Anion Gap 10 (12-20); Aspartate Amino Transferase 28 U/L (5-37); Bilirubin Total 0.3 mg/dL (0.0-1.0); Blood Urea Nitrogen 10 mg/dL (9-16); Calcium 9.5 mg/dL (8.4-10.2); Carbon Dioxide 25 mmol/L (22-29); Chloride 111 mmol/L (96-108); Cholesterol 136 mg/dL (<200); Estimated Glomerular Filt Rate > 60; Glucose Fasting 78 mg/dL (60-99); HDL Cholesterol 36 mg/dL (>40); LDL Cholesterol Calculated 91 mg/dL (<100); Potassium 4.7 mmol/L (3.3-5.1); Sodium 141 mmol/L (135-145); Total Protein 7.3 g/dL (6.5-8.0); Triglycerides 46 mg/dL (<150)
[2024-03-17 14:23] LABS: TSH reflex Free T4 0.13 uIU/mL (0.32-4.0)
[2024-03-17 14:40] LABS: Vitamin D 25-OH Total 53.6 ng/mL (>30)
[2024-03-17 15:03] LABS: Free T4 (Free Thyroxine) 1.04 ng/dL (0.71-1.85)
== END 2024-03-17 10:20 | disposition home or self-care (01) ==
LOC: HO.HMGCLDS 10:19
PROVIDERS: PCP Internal Medicine; Visit Provider Internal Medicine
DX: D64.9 Anemia, unspecified (principal); E78.00 Pure hypercholesterolemia, unspecified; E55.9 Vitamin D deficiency, unspecified; R30.0 Dysuria
CPT/HCPCS: 36415; 80053; 80061; 81003; 82306; 84439; 84443; 85025

== ENCOUNTER 2024-04-11 12:31 | Outpatient (AMB) | payer OTHER, SELFPAY ==
[2024-04-11 12:34] VITALS: BP 136/82; PULSE 68; O2SAT 99; BMI 25.6
--- NOTE | 2024-04-11 12:34 | A.OFFPC_ITS ---
Vital Signs 04/11/24 12:34 Height 5 ft 7 in Weight 163 lb 6 oz BMI 25.6 BP 136/82 Blood Pressure Location Lt brachial Position Sitting Pulse 68 Pulse Source Pulse Oximeter Pulse Oximetry (%) 99 Oxygen Delivery Method Room Air Intake Visit Reasons: 6mth f/u Retail Marketing Coordinator Required: No Accompanied by: Self / Same As Patient Allergies latex [LATEX] Allergy (Unknown, Verified 04/11/24 12:51) RASH red dye [RED DYE] Allergy (Unknown, Verified 04/11/24 12:51) HIVES Medication List - Last Reconciled 04/11/24 by Ang Hutchinson MD albuterol sulfate 90 mcg/actuation 2 puffs inhalation Q6H PRN clonazepam 1 - 2 mg (1 - 2 x 1 mg) PO BEDTIME PRN 30 days fluticasone propionate 110 mcg/actuation (Flovent HFA) 1 puff inhalation BID 30 days gabapentin Take 1 tablet at 6 am, 1.5 tablet at 1 PM and 2 tablets at bedtime orally 3 times a day; 30 days methadone 140 mg PO DAILY nystatin 1 appl topical TID 10 days polyethylene glycol 3350 (Miralax) 17 grams PO DAILY 30 days venlafaxine ER 150 mg PO DAILY 30 days Tobacco use date assessed: 04/11/24 Dental Screening Dental Screen Date: 04/11/24 Did you have a dental visit in the last 12 months?: Yes Did you have a dental problem in the last 6 months where you did not have access to dental care?: No Was dental information given to patient?: Patient has dentist HPI 6mth f/u HPI Details Patient comes in today for his follow-up visit States that he feels okay He denies any headaches or dizziness Denies any chest pains, no increased shortness of breath No nausea/vomiting, no abdominal pain No change in bowel habits noted - states that his chronic constipation is reasonably controlled on his current medications but he would like to see if he can be started back on Linzess Recalls that his bowels were a lot better controlled when he was on Linzess in the past but he had to switch medications because his insurance would not continue to cover his Rx He also needs a couple of his Rx refilled He had his follow-up labs done a few weeks ago - to discuss his results [facility] Medical History Depression Anxiety Asthma Overweight (BMI 25.0-29.9) History of undescended testicle Chronic constipation History of opioid abuse Surgical History History of surgery on right wrist (2018) History of varicocele History of ear surgery (2007) Family History Father Alive and well Mother Hypertension Hypothyroidism Hypercholesteremia Brother Alive and well Maternal Grandfather Myocardial infarction Family/Other Hypertension Diabetes Thyroid disease Maternal Grandmother FH: pancreatic cancer Social History Housing: Apartment Alcohol intake: never Patient Tobacco Use Status: Current everyday Tobacco user Cigarettes Per Day: 5 e-Cigarette/Vaping Use: Never Used Second Hand Smoke Exposure: Yes service: No Current occupational status: disabled Cognitive needs: No Hearing needs: No Vision needs: Yes Questionnaire PHQ-9 Over the last 2 weeks, how often have you been bothered by any of the following problems? 1. Little interest or pleasure in doing things: more than half the days 2. Feeling down, depressed, or hopeless: more than half the days 3. Trouble falling or staying asleep, or sleeping too much: nearly every day 4. Feeling tired or having little energy: more than half the days 5. Poor appetite or overeating: nearly every day 6. Feeling bad about yourself - or that you are a failure or have let yourself or your family down: more than half the days 7. Trouble concentrating on things, such as reading the newspaper or watching television: nearly every day 8. Moving or speaking so slowly that other people could have noticed. Or the opposite - being so fidgety or restless that you have been moving around a lot more than usual: more than half the days 9. Thoughts that you would be better off or of hurting yourself in some way: not at all Total score: 19 Depression Screening Interpretation: Positive Depression Screening Follow-up: Existing condition and In treatment Depression Screening Done: Yes 55306 - PHQ-9 Billing: Yes Source: Developed by Hayley BurtonW. Carlos, Edis Knott and colleagues, with an educational kathleen from [employer]. Thrive Questionnaire Date Thrive assessed: 04/11/24 I am a: Patient What is your living situation today?: I have a steady place to live Within the past 12 months, did the food you bought not last and you didn't have the money to get more?: Never true Within the past 12 months, did you worry whether your food would run out before you got money to buy more?: Never true Do you have trouble paying for medicines?: No Do you have trouble getting transportation to medical appointments?: No Do you have trouble paying your heating and electricity bill?: No Do you have trouble taking care of your child, family member or friend?: No Do you have trouble with day-to-day activities such as bathing, preparing meals, shopping, managing finances, etc.?: No Are you currently unemployed and looking for a job?: No Are you interested in more education?: No Please select the resources that you would like help with: None Currently or been in a relationship where the following occur: No concerns reported THRIVE Score: 0 AUDIT C Alcohol Use Questionnaire (AUDIT-C) 1. How often do you have a drink containing alcohol?: Never 3. How often do you have six or more drinks on one occasion?: Never Total Score: 0 Score Reviewed/Action Taken: Yes FROYLAN-7 AMB Questionnaire FROYLAN-7 Date FROYLAN - 7 assessed: 04/11/24 Feeling nervous, anxious, or on edge: 3 = Nearly every day Not being able to stop or control worryin = Nearly every day Worrying too much about different things: 3 = Nearly every day Trouble relaxin = Nearly every day Being so restless that it is hard to sit still: 2 = More than half the days Becoming easily annoyed or irritable: 2 = More than half the days Feeling afraid as if something awful might happen: 2 = More than half the days Total FROYLAN-7 score (0-4 normal; 5-9 mild; 10-14 moderate; 15-21 severe): 18 Source: Developed by Hayley Burton, Edis Knott and colleagues, with an educational kathleen from [employer]. FROYLAN-7 Assessment Billing FROYLAN-7 Assessment Tool: FROYLAN-7 Assessment 51663 Review of Systems Const Denies chills, Denies fatigue, Denies fever(s) and Denies headache(s) ENT Denies dysphagia, Denies dizziness, Denies otalgia, Denies headache(s), Denies neck pain, Denies odynophagia and Denies sore throat Card Denies chest pain, Denies irregular heart rhythm, Denies palpitations and Denies dyspnea Resp Denies chest congestion, Denies cough and Denies dyspnea GI Denies abdominal pain, Reports constipation, Denies dysphagia, Denies heartburn, Denies diarrhea, Denies nausea, Denies odynophagia and Denies vomiting Denies difficulty urinating, Denies dysuria and Denies urinary frequency Musc Denies back pain, Denies arthralgias and Denies neck pain Skin/Breast Denies rash Neuro Denies dizziness, Denies headache(s) and Denies paresthesias Endo Denies fatigue and Denies palpitations Physical exam (Primary Care) Vital Signs: Last Vital Signs Pulse 68 04/11/24 12:34 BP 136/82 04/11/24 12:34 Pulse Ox 99 04/11/24 12:34 Oxygen Delivery Method Room Air 04/11/24 12:34 BMI result Body Mass Index 25.6 Tobacco/Smoking Status: Tobacco use Status Tobacco use date assessed 04/11/24 04/11/24 12:41 Patient Tobacco Use Status Current everyday Tobacco 04/11/24 12:41 e-Cigarette/Vaping Use Never Used 04/11/24 12:41 PHQ-9: PHQ-9 Score PHQ-9: Total score 19 04/11/24 12:54 Depression Screening Interpretation: Positive Depression Screening Follow-up: Existing condition and In treatment Thrive Assessment: Date of Thrive Assessment Date Thrive assessed 04/11/24 04/11/24 12:41 Currently or been in a relationship where the following occur: No concerns reported Const General: no acute distress and alert HENMT Ears: TM's normal bilaterally and EAC's normal Throat: Yes posterior oropharynx normal and Yes tonsils normal (no TP congestion) Neck Neck: Yes supple and No lymphadenopathy Thyroid: Thyroid normal Resp Auscultation: clear to auscultation bilaterally, no rales and no wheezes Cardio Rate: regular rate Rhythm: regular rhythm Heart sounds: no murmurs GI Palpation (GI): Soft to palpation and nontender Auscultation: normal bowel sounds General: Yes no CVA tenderness Back/Spine/Pelvis Back: no CVA tenderness Thoracic/Lumbar Spine: No lumbar spinal tenderness Skin Rashes: no rashes Extrem General: Yes no clubbing, cyanosis or edema Results Reviewed Results Reviewed: Laboratory Tests 03/17/24 03/17/24 10:23 10:30 WBC 4.2 L Hgb 13.7 L Hct 41.9 L Plt Count 142 L Sodium 141 Potassium 4.7 Creatinine 0.77 Estimated GFR > 60 Fasting Glucose 78 Calcium 9.5 AST 28 ALT 12 Triglycerides 46 Cholesterol 136 LDL Cholesterol, Calc 91 HDL Cholesterol 36 L 25-OH Vitamin D Total 53.6 TSH 0.13 L Free T4 1.04 Ur Specific [place] 1.015 Urine Protein Negative Urine Glucose (UA) Negative Urine Blood Negative Urine Nitrite Negative Ur Leukocyte Esterase Negative Coding Level of Care Code Est Pt Level 4 (73878) Diagnoses Moderate persistent asthma without complication J45.40 Asthma severity: moderate Asthma persistence: persistent Asthma complication type: uncomplicated Constipation due to opioid therapy K59.03; T40.2X5A 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 Anxiety F41.9 Episode of recurrent major depressive disorder, unspecified depression episode severity F33.9 Depression Type: major depressive disorder Major depression recurrence: recurrent Active/Remission status: currently active Major depression episode severity: unspecified Overweight (BMI 25.0-29.9) E66.3 Additional Codes FROYLAN-7 Assessment Billing - FROYLAN-7 Assessment Tool: FROYLAN-7 Assessment 90356 ([id number]) PHQ-9 - 69660 - PHQ-9 Billing: Yes ([id number]) Assessment & Plan Assessment & Plan (1) Asthma: Code(s): J45.909 - Unspecified asthma, uncomplicated Category: Medical Qualifiers: Asthma severity: moderate Asthma persistence: persistent Asthma complication type: uncomplicated Qualified Code(s): J45.40 - Moderate persistent asthma, uncomplicated Plan: Stable/controlled Continue Flovent HFA 110 mcg 1 inhalation BID and Albuterol HFA 1 to 2 inhalations Q 6 hours PRN (2) Constipation due to opioid therapy: Code(s): K59.03 - Drug induced constipation; T40.2X5A - Adverse effect of other opioids, initial encounter Category: Medical Plan: His constipation has been better controlled on his current Rx - is mostly related to his Methadone Rx He is encouraged again to increase his oral fluids and dietary fiber intake Continue MiraLax 17 gm QD Will also try starting him back on Linzess 290 mcg Q AM per his request (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, unspecified, uncomplicated Category: Medical Plan: Continue Methadone 140 mg QD Follow up with the Methadone Clinic as scheduled His repeat EKG done back in November 2023 revealed sinus bradycardia; EKG was otherwise normal (4) Anxiety: Code(s): F41.9 - Anxiety disorder, unspecified Category: Medical Plan: Continue Clonazepam 1 mg 1 to 2 tablets Q HS PRN - Rx refilled (5) Depression: Code(s): F32.A - Depression, unspecified Category: Medical Qualifiers: Depression Type: major depressive disorder Major depression recurrence: recurrent Active/Remission status: currently active Major depression episode severity: unspecified Qualified Code(s): F33.9 - Major depressive disorder, recurrent, unspecified Plan: Continue Venlafaxine ER 150 mg QD and Gabapentin 600 mg 1 tablet at 6 am, 1.5 tablets at 1 PM and 2 tablets at bedtime orally 3 times a day Follow-up with Psychiatry as scheduled (6) Overweight (BMI 25.0-29.9): Code(s): E66.3 - Overweight Category: Medical Plan: Reinforced diet/exercise as tolerated/lose weight Plan To return in November 2024 as scheduled for his annual physical examination Orders: Orders Complete Blood Count Auto Diff 12/02/24 D64.9 - Anemia, unspecified, Z00.00 - Encounter for general adult medical examination without abnormal findings Lipid Panel 12/02/24 E78.00 - Pure hypercholesterolemia, unspecified, Z00.00 - Encounter for general adult medical examination without abnormal findings TSH reflex Free T4 12/02/24 E78.00 - Pure hypercholesterolemia, unspecified, Z00.00 - Encounter for general adult medical examination without abnormal findings Vitamin B12 and Folate 12/02/24 E53.8 - Deficiency of other specified B group vitamins, Z00.00 - Encounter for general adult medical examination without abnormal findings Comprehensive [place]. Panel Fast 12/02/24 E78.00 - Pure hypercholesterolemia, unspecified, Z00.00 - Encounter for general adult medical examination without abnormal findings UA CC w/rflx Micro + Cult 12/02/24 R30.0 - Dysuria, Z00.00 - Encounter for general adult medical examination without abnormal findings Vitamin D 25-OH Total 12/02/24 E55.9 - Vitamin D deficiency, unspecified, Z00.00 - Encounter for general adult medical examination without abnormal findings Medications: New Linzess (linaclotide) 290 mcg PO QAM 30 days 30 caps 3RF constipation NS Refilled clonazepam 1 - 2 mg (1 - 2 x 1 mg) PO BEDTIME 30 days PRN 60 tabs 0RF anxiety gabapentin Take 1 tablet at 6 am, 1.5 tablet at 1 PM and 2 tablets at bedtime orally 3 times a day; 30 days 135 tabs 3RF
== END 2024-04-11 12:59 | disposition home or self-care (01) ==
PROVIDERS: PCP Internal Medicine; Visit Provider Internal Medicine
DX: J45.40 Moderate persistent asthma, uncomplicated (principal); K59.03 Drug induced constipation; T40.2X5A Adverse effect of other opioids, initial encounter; F11.90 Opioid use, unspecified, uncomplicated; F41.9 Anxiety disorder, unspecified; F33.9 Major depressive disorder, recurrent, unspecified; E66.3 Overweight

== ENCOUNTER → 2024-04-11 12:31 | Outpatient (BNVA) | payer OTHER, SELFPAY | PROVIDERS: PCP Internal Medicine; Visit Provider Internal Medicine | DX: J45.40 Moderate persistent asthma, uncomplicated (principal); K59.03 Drug induced constipation; T40.2X5A Adverse effect of other opioids, initial encounter; F11.90 Opioid use, unspecified, uncomplicated; F41.9 Anxiety disorder, unspecified; F33.9 Major depressive disorder, recurrent, unspecified; E66.3 Overweight | CPT/HCPCS: 96127; 99212 ==

== ENCOUNTER → 2024-11-17 13:57 | Outpatient (REF) | payer OTHER, SELFPAY ==
--- NOTE | 2024-11-17 14:02 | ECG_ITS ---
Test Reason : CHECK QT Blood Pressure : */* mmHG Vent. Rate : 58 BPM Atrial Rate : 58 BPM P-R Int : 152 ms QRS Dur : 86 ms QT Int : 512 ms P-R-T Axes : 50 62 34 degrees QTcB Int : 502 ms Sinus bradycardia T wave abnormality, consider anterior ischemia Abnormal ECG When compared with ECG of 16-Dec-2023 12:15, T wave inversion more evident in Anterior leads Referred By: Anita Elkins Electronically Signed By: OLINDA HERNANDEZ
== END ==
LOC: HO.CARD 13:57
PROVIDERS: PCP Internal Medicine; Visit Provider Registered Nurse General Practice
DX: Z79.899 Other long term (current) drug therapy (principal)
CPT/HCPCS: 93005

== ENCOUNTER → 2024-11-17 14:02 | Outpatient (BNV) | payer OTHER, SELFPAY | PROVIDERS: PCP Internal Medicine; Visit Provider Internal Medicine | DX: R00.1 Bradycardia, unspecified (principal) | CPT/HCPCS: 93010 ==

== ENCOUNTER 2024-11-27 13:57 | Outpatient (AMB) | payer OTHER, SELFPAY ==
--- OUTSIDE RECORDS SUMMARY | 2023-10-15 08:45 | XMS_ITS ---
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 Name Role Phone Ang Hutchinson MD Primary Care Provider UnaJacob Harry Unavailable [phone] Encounters Encounter Location Date Provider Diagnosis [facility] [address] [place] [address] 10/15/2023 Jacob Santiago Plan Of Treatment No Information Progress Notes * Nicole RANDHAWAOB:1995 ( 28 yo M)Acc No.[id number]:10/15/2023 Progress Note Patient: Ovidio RAMOS Provider: Gregoria Santiago DPM :1995 A ge:27 Y S ex:Male Date:10/15/2023 Address:[address] [place] [address] [facility] Pcp:Ang Hutchinson MD Subjective: * Chief Complaints: * * Medical History: Objective: * Vitals: Assessment: Plan: * Treatment: * Images: * The named appointment provid er may or may not be the originator of this progress note, and it is not deemed complete until electronically signed by the appointment provider. Sign off status: Pending * Provider: Gregoria Santiago DPM Date: 0 10/15/2023 Generated for Printi ng/Faxing/eTransmitting on: 11/27/2024 03:43 PM EDT
--- OUTSIDE RECORDS SUMMARY | 2024-02-16 09:00 | XMS_ITS ---
Author Organization [facility] Address [address] [address] Care Team Providers Care Lease Purchase Driver Name Role Phone Ang Hutchinson MD Primary Care Provider UnaJacob Harry Unavailable [phone] Childers Encounters Encounter Location Date [facility] [address] [address] 02/16/2024 Jacob Santiago Plan Of Treatment No Information Progress Notes * Marquis LOPESNinoskaOB:1995 ( 28 yo M)Acc No.[id number]:02/16/2024 Progress Notes Patient: Ovidio RAMOS Provider: Gregoria Santiago DPM :1995 A ge:28 Y S ex:Male Date:02/16/2024 Address:[address] [place] [address] [address] [facility] Pcp:Ang Hutchinson MD Subjective: * Chief Complaints: [...] Santiago DPM Date: 04/18/2023 Generated for Sixtoi ng/Famichael/eTransmitting on: 0 11/27/2024 03:43 PM EDT
--- NOTE | 2024-11-27 14:15 | AM.OFFWIN_ITS ---
Intake Vital Signs 3 11/27/24 14:16 Height 5 ft 7 in Weight 153 lb BMI 24.0 BP 122/90 H Blood Pressure Location Rt brachial Position Sitting Pulse 88 Pulse Source Pulse Oximeter Temp 98.2 F Temp Source Oral Pulse Oximetry (%) 100 Oxygen Delivery Method Room Air Intake Visit Reasons: ep abcess on left forearm Intake Note: pt presents with enlarging cyst on left upper forearm Patient Tobacco Use Status: Current everyday Tobacco user Allergies latex (LATEX) Allergy (Unknown, Verified 11/27/24 16:31) RASH red dye (RED DYE) Allergy (Unknown, Verified 11/27/24 16:31) HIVES Do you need a note to return to daycare/school/sports/work: No HPI HPI Comments 2 History of Present Illness0 Details 28 y/o Male patient who presents to the walk in clinic with c/o Left Upper Arm abscess for 3 days. Reports difficulty with bending Elbow due to swelling of his entire limb. He has h/o IV Drug use (Heroine/Cocaine) and this developed after he used last. Reports that he usually uses clean needles that he obtains from [facility]. [facility] Medical History (Updated 11/27/24 @ 15:00 by Anju Gregorio NP) Abscess of antecubital fossa Depression Anxiety Asthma Overweight (BMI 25.0-29.9) History of undescended testicle Chronic constipation History of opioid abuse Surgical History History of surgery on right wrist (2018) History of varicocele History of ear surgery (2006) Family History Father Alive and well Mother Hypertension Hypothyroidism Hypercholesteremia Brother Alive and well Maternal Grandfather Myocardial infarction Family/Other Hypertension Diabetes Thyroid disease Maternal Grandmother FH: pancreatic cancer Social History Housing: Apartment Alcohol intake: never Patient Tobacco Use Status: Current everyday Tobacco user Cigarettes Per Day: 5 e-Cigarette/Vaping Use: Never Used Second Hand Smoke Exposure: Yes Do you have a plan to hurt others: No Plan service: No Current occupational status: disabled Cognitive needs: No Hearing needs: No Vision needs: Yes Review of Systems Const All systems reviewed & are unremarkable except as noted in HPI and below Physical Exam Vital Signs: Last Vital Signs Temp 98.2 F 11/27/24 14:16 Pulse 88 11/27/24 14:16 BP 122/90 H 11/27/24 14:16 Pulse Ox 100 11/27/24 14:16 Oxygen Delivery Method Room Air 11/27/24 14:16 BMI result Body Mass Index 24.0 Const General: no acute distress Nutritional Appearance: well nourished Orientation/consciousness: patient oriented x3 Skin Other: Skin covered with multiple fresh and old track hamilton (mostly upper Arms). General skin exam: dry skin, erythema and Excoriation Neuro General: patient oriented x3, gait normal and moves all extremities Extrem Left upper extremity: elbow/forearm (Visible old and new IV track hamilton/scars on both upper arms. ) Details: tenderness Location: of the antercubital fossa, abnormal ROM and warmth Location: of the olecranon bursa and of the elbow joint; no crepitus Elbow/forearm/wrist images: 2 1. Large Abscess, fixed hard mass TTP, erythematous. Swelling of entire left upper arm, limited ROM due to pain. Psych Speech and movement: Normal speech and movement present Assessment & Plan Assessment & Plan (1) Abscess of antecubital fossa: Code(s): L02.419 - Cutaneous abscess of limb, unspecified Plan: Pt with h/o IV Heroine/Cocaine abuse, with recent use. Due to this history it is likely that he might develop Osteomylitis - needing IV Abx. Plus he might have FB/needle stuck. Explained this to patient and he declined Ambulance Ride I'm an adult and I can make my own decisions . Pt does not have transportation and uses [facility] for rides. I was able to talk to his mother on the phone who does not have vehicle and we both agreed he goes to the ED right now and I would call an ambulance to bring him to the Emergency room. Pt still declined Ambulance because he needs to get his Phone hospital attendant from home, and his phone's battery low. Pt stated that he will go later tonight, and his father will drive him to the ED - Pt stormed out of the Exam room, walking towards the Exit. Coding Level of Care Code Est Pt Level 4 (32337) Diagnoses Abscess of antecubital fossa L02.419 Time Spent (min) 20
[2024-11-27 14:16] VITALS: BP 122/90; PULSE 88; TEMP 36.8; O2SAT 100; BMI 24.0
--- OUTSIDE RECORDS SUMMARY | 2024-11-27 15:43 | XMS_ITS | Patient Health Record ---
Author Organization [facility] Address [address] [place] [address] Care Team Providers Care Auto Accessories Installer Name Role Phone Jasper HAINES, Ang Primary Care Provider Davion Curry [phone] Allergies Allergen (clinical drug ingredient) Drug/Non Drug Allergy documented on EMR Reaction Allergy Type Onset Date Status Latex Latex (uncoded) Unknown Allergy Acti ve red dye (uncoded) Unknown Allergy Ac tive Reason For Referral No Information Medications Medication SIG (Take, Route, Frequency, Duration) Notes Start Date End Date Status Venlafaxine HCl ER 150 MG 1 tablet with food Oral Once a day Active Methadone HCl 10 MG 7 tablet/taper Orall y Once a day Active clonazePAM 1 MG 1 tablet Orally Once a day/prn Active Immunizations Vaccine Route Administration Date Status Comme nts Influenza Unknown 12/08/2017 Administered Social History Tobacco Use: Social History Observation Description Date Details (start date - stop date) Current Smoker NA - NA Tobacco Use/Smoking Question Answer Notes Patient is a current smoker How often do you smoke cigarettes? every day How many cigarettes a day do you smoke? 6-10 How soon after you wake up d o you smoke your first cigarette? 31-60 minutes Are you interested in quitting? Thinking about q uitting Section Notes: Smoker 1/2 ppd; no alcohol Substance abuse as above Problems Problem Type SNOMED Code ICD Code Onset Dates Problem Status W/U Status Risk Notes Problem [id number] Irritable bowel syndrome with both constipation and diarrhea (K58.2) Active confirmed Plan Of Treatment Pending Test Test Name Order Date CLOSTRIDIUM DIFF TOXIN A&B (C DIFF) 10/2018 GIARDIA AG, STOOL EIA 09/06/2018 OVA & PARASITES (O&P) 09/06/2018 CULTURE, STOOL 09/06/2018 Insurance Providers Payer Name Payer Address Payer Phone Subscriber Number Group Number Insured Name Patient Relationship to Insured Coverage Start Date Coverage End Date [facility] [address] [place] [phone] [id number] YARELIS LOPESIN Self - patient is the insured MEDICAID OF [place] [address] [place] [address] [id number] JAYA LOPES Self - patient is the insured Medical (General) History Medical History History ICD Code Asthma Denies [place],DM,CVA,renal disease Substance abuse with opiates , including sme IVDA--abstinent since 2016; on Methadone since 2012 Depression and anxiety Surgical History Surgery Date(Month/Year) Testicular surgery-right und escended testicle and possible torsion of the left testicle, and varicocele 2000,2006 Ears pinned 2006 Wrist surgery-Dr. Ny 2016
--- OUTSIDE RECORDS SUMMARY | 2024-11-27 15:43 | XMS_ITS | Patient Health Record ---
Author Organization [facility] Address [address] [place] [address] Care Team Providers Care Scanner Operator Name Role Phone Jasper HAINES, [place] Primary Care Provider Jacob Fernandez Unavailable [phone] Allergies Allergen (clinical drug ingredient) Drug/Non Drug Allergy documented on EMR Reaction Allergy Type Onset Date Status Dye, Red Unknown Drug Allergy Active Latex Latex Unknown Allergy Active Reason For Referral No Information Medications Medication SIG (Take, Route, Frequency, Duration) Notes Start Date End Date Status Albuterol Sulfate HFA Active clonazePAM 1 MG 1 tablet Orally Once a day Active Venlafaxine HCl ER 150 MG 1 tablet with food Orally Once a day Active Gabapentin 600 MG 1 tablet Orally Once a day Active Polyethylene Glycol 3350 Active Methadone HCl Not-Ta aleshia KlonoPIN 2 MG 1 tablet Orally Once a day Not-Taking Immunizations Vaccine Route Administration Date Status Comme nts COVID-19 Pfizer BioNTech Vaccine Unknown 08/08/2020 Adm inistered 07/18/20 Social History Tobacco Use: Social History Observation Description Date Details (start date - stop date) Current Smoker NA - NA Tobacco use other than smoking: Question Answer Notes Are you an other tobacco user? No Tobacco Control (Standard) Question Answer Notes Tobacco use: Current smoker How many cigarettes a day do you smoke? 5 or les s Additional Findings: Tobacco user Light cigarett e smoker (1-9 cigs/day) AUDIT-C (Standard) Question Answer Notes Did you have a drink containing alcohol in the p ast year? No Points 0 Interpretation Negative Vital Signs Blood pressure diastolic 75 mm Hg 02/09/2024 Height 5ft 7in in 02/09/2024 Blood pressure systolic 122 mm Hg 02/09/2024 Weight 160 lbs 02/09/2024 BMI 25.06 kg/m2 02/09/2024 Procedures Procedure Date Ordered Date Performed Result Body Sit e 51472-CQCV SKIN LESIONS, OVER 4 02/09/2024 N/A [id number] DYSTROPHIC NAILS ANY # 02/09/2024 N/A Encounters Encounter Location Date Provider Diagnosis [facility] [address] 02/09/2024 Jacob Santiago Pain in right ankle and joints of right foot M25.571 ; Pain in left ankle and joints of left foot M25.572 ; Flat foot [pes planus] (acquired), right foot M21.41 ; Flat foot [pes planus] (acquired), left foot M21.42 ; Keratosis L57.0 and Onychodystrophy L60.[address] [facility] [address] 03/07/2024 Jacob Santiago Assessments Encounter Date Diagnosis (ICD Code) Assessment Notes Treatment Notes Treatment Clinical Notes Section Notes 02/09/2024 Pain in right ankle and joints of right foot (ICD-10 - M25.571) Chronic problem, Worse (4) 02/09/2024 Pain in left ankle and joints of left foot (ICD-10 - M25.572) Chronic problem, Worse (4) 02/09/2024 Flat foot [pes planus] (acquired), right foot (ICD-10 - M21.41) Chronic problem, Worse (4) 02/09/2024 Flat foot [pes planus] (acquired), left foot (ICD-10 - M21.42) Chronic problem, Worse (4) 02/09/2024 Keratosis (ICD-10 - L57.0) 02/09/2024 Onychodystrophy (ICD-10 - L60.3) Plan Of Treatment Pending Test Test Name Order Date 49541-OVLC SKIN LESIONS, OVER 4 10/16/19 21 70123-[id number] SKIN LESIONS, OVER 4 02/09/20 24 G2424-[id number] DYSTROPHIC NAILS ANY # Insurance Providers Payer Name Payer Address Payer Phone Subscriber Number Group Number Insured Name Patient Relationship to Insured Coverage Start Date Coverage End Date [facility] [employer] Claims [address] [place] [phone] [id number] Ovidio Randhawa Self - patient is the insured Medical (General) History Medical History History ICD Code Anxiety asthma Depression Surgical History Surgery Date(Month/Year) testicular 3 sx 2000 ear surgery 1 sx wrist surgery 1sx 2017
== END 2024-11-27 15:02 | disposition home or self-care (01) ==
PROVIDERS: PCP Internal Medicine; Visit Provider Nurse Practitioner Family
DX: L02.419 Cutaneous abscess of limb, unspecified (principal)

== ENCOUNTER → 2024-11-27 13:57 | Outpatient (BNVA) | payer OTHER, SELFPAY | PROVIDERS: PCP Internal Medicine; Visit Provider Nurse Practitioner Family | DX: L02.414 Cutaneous abscess of left upper limb (principal) | CPT/HCPCS: 99212 ==

== ENCOUNTER 2024-11-27 16:01 | Emergency (ER) | payer OTHER, SELFPAY ==
[2024-11-27 16:28] VITALS: BP 148/86; PULSE 83; RESP 16; TEMP 37; O2SAT 100; BMI 23.6
--- NOTE | 2024-11-27 16:31 | ED.GENADULT ---
HPI - General Adult General Chief complaint: Skin/Abscess/Foreign Body Stated complaint: Sent from urgent care Time Seen by Provider: 11/27/24 16:57 Source: patient and old records reviewed Mode of arrival: ambulatory Limitations: no limitations History of Present Illness ED Provider: RAJESH MONTANEZ narrative: 28 yo male with PMH of IVDA on methadone here with c/o L forearm abscess at IVDA site x 2 days. No n/v/d. No fevers. Can range the elbow no issues. No numbness or tingling. He has not been on any therapy. Referred by UC. He is R hand dominant complaint: abscess Onset (ago): day(s) (2) Location: left and lower extremity Radiation: non-radiation Severity: moderate Quality: aching Pain Consistency: constant Relieving factors: none Exacerbating factors: movement Associated symptoms: denies other symptoms Treatments prior to arrival: none Related Data Home Medications ?Medication ?Instructions ?Recorded ?Confirmed methadone 10 mg/mL oral concentrate 175 mg PO DAILY 11/27/24 Previous Rx's ?Medication ?Instructions ?Recorded albuterol sulfate 90 mcg/actuation 2 puff inhalation Q6H PRN 10/21/23 aerosol inhaler shortness of breath or wheezing #8.5 grams polyethylene glycol 3350 17 17 g PO DAILY 30 days #510 grams 12/10/23 gram/dose oral powder (Miralax) Linzess 290 mcg capsule 290 mcg PO QAM constipation 30 09/11/24 (linaclotide) days #30 caps venlafaxine 150 mg 150 mg PO DAILY 30 days #30 caps 10/03/24 capsule,extended release 24 hr clonazepam 1 mg tablet 1 - 2 mg (1 - 2 x 1 mg) PO BEDTIME 11/01/24 PRN anxiety 30 days #60 tabs cephalexin 500 mg capsule 500 mg PO QID 7 days #28 caps 11/27/24 doxycycline hyclate 100 mg capsule 100 mg PO BID 7 days #14 caps 11/27/24 Allergies Allergy/AdvReac Type Severity Reaction Status Date / Time latex (LATEX) Allergy Unknown RASH Verified 11/27/24 16:31 red dye (RED DYE) Allergy Unknown HIVES Verified 11/27/24 16:31 Review of Systems Review of Systems: Constitutional : No Fever, No Chills Cardiovascular : No Chest Pain, No SOB Respiratory : No Cough, No Sputum Gastrointestinal : No Nausea, No Vomiting, No Diarrhea, No abdominal Pain Genitourinary : No Dysuria, No Hematuria Musculoskeletal : No joint pain, No Myalgias, No Joint Swelling Skin : No Skin Lesions, positive skin rash All other systems reviewed and are negative Yes all other systems are reviewed and are negative [facility] Past Medical History Attestation statement: The following information was validated with the patient. Source: old records reviewed Medical History Abscess of antecubital fossa Depression Anxiety Asthma Overweight (BMI 25.0-29.9) History of undescended testicle Chronic constipation History of opioid abuse Surgical History History of surgery on right wrist (2017) History of varicocele History of ear surgery (2006) Family History Family History Father Alive and well Mother Hypertension Hypothyroidism Hypercholesteremia Brother Alive and well Maternal Grandfather Myocardial infarction Family/Other Hypertension Diabetes Thyroid disease Maternal Grandmother FH: pancreatic cancer Social History Social History Housing: Apartment Alcohol intake: never Patient Tobacco Use Status: Current everyday Tobacco user Cigarettes Per Day: 5 Smoked in Last 30 Days: Yes e-Cigarette/Vaping Use: Never Used Second Hand Smoke Exposure: Yes Use of substances other than those prescribed or required for medical reasons: Yes Substance Use Type: Heroin Substance Use Frequency: Weekly Substance Use Frequency Other:: every other day, last use yesterday Advance Directives: No Advance Directives Information Provided: No Do you have a plan to hurt others: No Plan service: No Current occupational status: disabled Cognitive needs: No Hearing needs: No Vision needs: Yes Physical Exam ED Vital Signs: Vital Signs - 24 hr 11/27/24 16:28 Temperature 98.6 F Pulse Rate 83 Respiratory Rate 16 Blood Pressure 148/86 H Pulse Oximetry 100 Oxygen Delivery Method Room Air BMI result Body Mass Index 23.6 Appearance: Alert. Oriented X3. No acute distress. Eyes: Pupils equal, round and reactive to light. ENT: Pharynx normal. Neck: Normal inspection. Neck supple. CVS: Normal heart rate and rhythm. Pulses normal. Respiratory: No respiratory distress. Breath sounds normal. Abdomen: Soft and nontender. Skin: Skin warm and dry. Normal skin coL forearm golf ball size abscess on posterior forearm not in AC fossa but overlying ulnar area he is NV intact distally, has normal full ROM of the elbow joint Neuro: Oriented X 3. No motor deficit. No sensory deficit. Course Course Course Narrative: Rapid medical examination performed in triage by Radha Lema PA-C. Patient is a 28 year old assigned male at presenting to the emergency department with left forearm abscess. Patient has a history of IVDU. Detailed physical exam and review of systems are deferred to the email campaign specialist. Labs and imaging ordered. Patient placed back in the waiting room pending room availability and results. Medications Administered Discontinued Medications Generic Name Dose Route Start Last Admin Trade Name Freq PRN Reason Stop Dose Admin Cephalexin HCl 500 mg 11/27/24 17:05 11/27/24 17:37 Cephalexin 500 Mg Capsule PO 11/27/24 17:06 500 mg ONCE ONE Administration Doxycycline Monohydrate 100 mg 11/27/24 17:05 11/27/24 17:37 Doxycycline Monohydrate 100 Mg Capsule PO 11/27/24 17:06 100 mg ONCE ONE Administration Lidocaine/Epinephrine/Tetracaine 3 ml 11/27/24 17:05 11/27/24 17:48 Lidocaine/Racepinep/Tetracaine 3 Ml Gel.Pf.Hal TOPICAL 11/27/24 17:06 3 ml ONCE ONE Administration Procedures Abscess I/D Site: upper extremity Side (if applicable): left Local Anesthetic: lidocaine 1% Amount of anesthesia used (mL): 0.5 Technique: incised with blade (large amount of purulent material expressed) Sent for culture/gram staining?: No Irrigation: Yes Packing used?: iodoform Medical Decision Making Medical Decision Making [facility] Narrative: 28 yo male with PMH of IVDA on methadone here with c/o L arm abscess but no systemic symptoms at this time will need oral abx and I+D I am not concerned for septic joint. He can be started on oral abx. Differential Diagnosis Differential Diagnoses: The differential diagnosis associated with the presentation includes abscess, cellulitis Admission/Observation Consideration of admission/observation: Escalation of care including admission/observation considered no signs of deeper space infection Lab Data [facility] Lab Attestation statement: I reviewed the patient's lab results. 11/27/24 16:58 11/27/24 16:58 Labs: Lab Results 11/27/24 Range/Units 16:58 WBC 8.2 (4.8-10.8) X10*3/uL RBC 4.61 (4.60-5.80) X10*6/uL Hgb 12.4 L (14.0-18.0) g/dl Hct 38.0 L (42.0-52.0) % MCV 82.4 (80.0-98.0) fL MCH 26.9 L (27.0-33.0) pg MCHC 32.6 (31.0-36.0) g/dl RDW 13.4 (11.0-16.0) % Plt Count 196 D (160-400) X10*3/uL MPV 9.2 L (9.4-12.4) fL Immature Gran % (Auto) 0.4 (0.0-0.4) % Neut % (Auto) 80.5 H (45-73) % Lymph % (Auto) 11.7 L (20-40) % [place] % (Auto) 6.8 (2-11) % Eos % (Auto) 0.5 (0-4) % Baso % (Auto) 0.1 (0-2) % Lymph # (Auto) 1.0 L (1.2-4.9) X10*3/uL [place] # (Auto) 0.6 (0.1-1.2) X10*3/uL Eos # (Auto) 0.0 (0.0-0.4) X10*3/uL Baso # (Auto) 0.0 (0.0-0.2) X10*3/uL Abs Immat Gran (auto) 0.03 (0.00-0.03) X10*3/uL Absolute Neuts (auto) 6.6 (2.0-8.3) x10*3/uL Absolute Nucleated RBC 0.000 (0.0-0.012) X10*3/uL Nucleated RBC % (auto) 0.0 (0.0-0.2) /100WBC ESR 44 H (0-15) MM/HR Sodium 142 (135-145) mmol/L Potassium 3.8 (3.3-5.1) mmol/L Chloride 105 (96-108) mmol/L Carbon Dioxide 28 (22-29) mmol/L Anion Gap 13 (12-20) BUN 10 (9-16) mg/dL Creatinine 0.66 (0.5-1.4) mg/dL Estim Creat Clear Calc 153.0 Estimated GFR > 60 Random Glucose 89 (60-115) mg/dL Calcium 9.5 (8.4-10.2) mg/dL Total Bilirubin 0.3 (0.0-1.0) mg/dL AST 17 (5-37) U/L ALT 10 (0-40) U/L Alkaline Phosphatase 74 (39-117) U/L C-Reactive Protein 6.91 H (< or = 0.50) mg/dL Total Protein 7.8 (6.5-8.0) g/dL Albumin 4.7 (3.5-5.0) g/dL External Record Review External record reviewed: Outpatient record Prescription Management I considered prescription management with: Antibiotic Discharge Plan Discharge Clinical Impression: Abscess of skin or subcutaneous tissue Qualifiers: Site of cutaneous abscess: extremity Site of cutaneous abscess of extremity: upper extremity Laterality: left Qualified Code(s): L02.414 - Cutaneous abscess of left upper limb Patient Disposition: Home, Self-Care Instructions: Abscess (ED) Additional Instructions: packing needs to come out in 48 hours follow up in ED or at urgent care or with primary care doctor. it is okay to shower but that is is no pools or other water exposures it is okay if the packing falls out early take all antibiotics and finish course On a cephalosporin?antibiotic, softer bowel movements are to be expected. Call your provider if you move your bowels more than 4 times a day, your bowel movements are almost all liquid, or you get a rash.?? On doxycycline, do not take pills immediately before going to bed and swallow pills with plenty of water. Avoid direct sunlight, iron, antacids, and Pepto Bismol. Call your provider if you develop new ringing in your ears, new problems hearing, dizziness, difficulty swallowing, rash, abdominal discomfort, nausea, or diarrhea.? next dose of antibiotics is in the morning Prescriptions: New doxycycline hyclate 100 mg capsule 100 mg PO BID 7 Days Qty: 14 0RF cephalexin 500 mg capsule 500 mg PO QID 7 Days Qty: 28 0RF No Action albuterol sulfate 90 mcg/actuation HFA aerosol inhaler 2 puff inhalation Q6H PRN (Reason: shortness of breath or wheezing) Qty: 8.5 2RF Linzess 290 mcg capsule 290 mcg PO QAM 30 Days Qty: 30 3RF venlafaxine 150 mg capsule,extended release 24hr 150 mg PO DAILY 30 Days Qty: 30 2RF clonazepam 1 mg tablet 1 - 2 mg PO BEDTIME PRN (Reason: anxiety) 30 Days Qty: 60 0RF methadone 10 mg/mL concentrate 175 mg PO DAILY Patient Comments: [facility] in [place] polyethylene glycol 3350 [Miralax] 17 gram/dose powder 17 g PO DAILY 30 Days Qty: 510 5RF Print Language: Vietnamese
[2024-11-27 17:03] LABS: MANUAL DIFF FLAG NO
[2024-11-27 17:05] LABS: Hematocrit 38.0 % (42.0-52.0); Hemoglobin 12.4 g/dl (14.0-18.0); Imm Gran Abs Auto 0.03 X10*3/uL (0.00-0.03); Imm Gran Pct Auto 0.4 % (0.0-0.4); Lymphocytes Absolute Auto 1.0 X10*3/uL (1.2-4.9); Mean Corpuscular HGB Conc 32.6 g/dl (31.0-36.0); Mean Corpuscular Hemoglobin 26.9 pg (27.0-33.0); Mean Corpuscular Volume 82.4 fL (80.0-98.0); NRBC Abs Auto 0.000 X10*3/uL (0.0-0.012); NRBC Pct Auto 0.0 /100WBC (0.0-0.2); Platelet Count 196 X10*3/uL (160-400); Red Blood Count 4.61 X10*6/uL (4.60-5.80); White Blood Count 8.2 X10*3/uL (4.8-10.8)
[2024-11-27 17:18] LABS: Alanine Aminotransferase 10 U/L (0-40); Albumin Level 4.7 g/dL (3.5-5.0); Alkaline Phosphatase 74 U/L (39-117); Anion Gap 13 (12-20); Aspartate Amino Transferase 17 U/L (5-37); Blood Urea Nitrogen 10 mg/dL (9-16); Calcium 9.5 mg/dL (8.4-10.2); Carbon Dioxide 28 mmol/L (22-29); Chloride 105 mmol/L (96-108); Creatinine Clr Calc Pharmacy 153.0; Estimated Glomerular Filt Rate > 60; Potassium 3.8 mmol/L (3.3-5.1); Sodium 142 mmol/L (135-145); Total Protein 7.8 g/dL (6.5-8.0)
[2024-11-27] MEDS: Lidocaine/Racepinep/Tetracaine 3 ML GEL.PF.APP TOPICAL (17:48)
[2024-11-27] MEDS: Lidocaine HCl 1 % MPF 5 ML VIAL SUBCUT (18:55)
[2024-11-27 19:13] VITALS: BP 142/82; PULSE 82; RESP 16; TEMP 37; O2SAT 99
== END 2024-11-27 19:14 | disposition home or self-care (01) ==
PROVIDERS: Physician Assistant Medical; Emergency Provider Emergency Medicine; PCP Internal Medicine
DX: L02.414 Cutaneous abscess of left upper limb (principal); Z79.899 Other long term (current) drug therapy
CPT/HCPCS: 10060; 36415; 80053; 85025; 85652; 86140; 99284; J2003

== ENCOUNTER → 2024-12-15 12:37 | Outpatient (REF) | payer OTHER, SELFPAY ==
--- OUTSIDE RECORDS SUMMARY | 2023-10-15 08:45 | XMS_ITS ---
Author Organization [facility] Address [address] [place] [address] Care Team Providers Care Certified Scrub Tech Name Role Phone Ang Hutchinson MD Primary Care Provider UnaJacob Harry Unavailable [phone] Encounters Encounter Location Date Provider Diagnosis [facility] [address] [place] [address] 10/15/2023 Jacob Santiago Plan Of Treatment No Information Progress Notes * Nicole RANDHAWAOB:1995 ( 29 yo M)Acc No.[id number]:10/15/2023 Progress Note Patient: Ovidio RAMOS Provider: Gregoria Santiago DPM :1995 A ge:27 Y S ex:Male Date:10/15/2023 Address:[address] [place] [address] [facility] Pcp:Ang Hutchinson MD Subjective: * Chief Complaints: [...] 0 10/15/2023 Generated for Printi ng/Faxing/eTransmitting on: 1 03:01 PM EDT
--- OUTSIDE RECORDS SUMMARY | 2024-02-16 09:00 | XMS_ITS ---
Author [facility] Address [address] [place] [address] Care Team Providers Care Edi Programmer Analyst Name Role Phone Ang Hutchinson MD Primary Care Provider UnaJacob Harry Unavailable [phone] Childers Encounters Encounter Location Date [facility] [address] [address] 02/16/2024 Jacob Santiago Plan Of Treatment No Information Progress Notes * Nicole LOPESOB:1995 ( 29 yo M)Acc No.[id number]:02/16/2024 Progress Notes Patient: Ovidio RAMOS Provider: Gregoria Santiago DPM :1995 A ge:28 Y S ex:Male Date:02/16/2024 Address:[address] [place] [address] [facility] Pcp:Ang Hutchinson MD Subjective: * Chief Complaints: * [address] Childers. * Medical History: Objective: * Vitals: Assessment: Plan: * Treatment: * Images: * The named appointment provid er may or may not be the originator of this progress note, and it is not deemed complete until electronically signed by the appointment provider. Sign off status: Pending * Provider: Gregoria Santiago DPM Date: 04/18/2023 Generated for Christina forbes/Rabia/eTransmitting on: 03:01 PM EDT
--- NOTE | 2024-12-15 12:43 | ECG_ITS ---
Test Reason : OPIOD USE Blood Pressure : */* mmHG Vent. Rate : 59 BPM Atrial Rate : 59 BPM P-R Int : 134 ms QRS Dur : 88 ms QT Int : 466 ms P-R-T Axes : 49 56 14 degrees QTcB Int : 461 ms Sinus bradycardia T wave abnormality, consider anterior ischemia Abnormal ECG When compared with ECG of 17-Nov-2024 14:08, T wave inversion less evident in Anterior leads Referred By: Ang Hutchinson Electronically Signed By: Kris Fisher
--- OUTSIDE RECORDS SUMMARY | 2024-12-15 15:01 | XMS_ITS | Patient Health Record ---
Author Organization [facility] [place] Address [address] [facility] [address] Care Team Providers Care Ship Engineer Name Role Phone Jasper HAINES, [place] Primary Care Provider Jacob Fernandez Unavailable [phone] Allergies Allergen (clinical drug ingredient) Drug/Non Drug [...] Ordered Date Performed Result Body Sit e 95953-BMZZ SKIN LESIONS, OVER 4 02/09/2024 N/A [id number]-[id number] DYSTROPHIC NAILS ANY # 02/09/2024 N/A Encounters Encounter Location Date Provider Diagnosis [facility] [address] 02/09/2024 Jacob Santiago Pain in right ankle and joints of right foot M25.571 ; Pain in left ankle and joints of left foot M25.572 ; Flat foot [pes planus] (acquired), right foot M21.41 ; Flat foot [pes planus] (acquired), left foot M21.42 ; Keratosis L57.0 and Onychodystrophy L60.3 [facility] [address] 03/07/2024 Jacob Santiago Assessments Encounter Date Diagnosis [...] Treatment Pending Test Test Name Order Date 55293-ZTQY SKIN LESIONS, OVER 4 10/16/19 21 26764-FGBE SKIN LESIONS, OVER 4 02/09/20 24 T1778-NOJBMEAP DYSTROPHIC NAILS ANY # Insurance Providers Payer Name Payer Address Payer Phone Subscriber Number Group Number Insured Name Patient Relationship to Insured Coverage Start Date Coverage End Date [facility] CCA SCO Claims [address] [place] [id number] Ovidio Randhawa Self - patient is the insured Medical (General) History Medical History History ICD Code Anxiety asthma Depression Surgical History Surgery Date(Month/Year) testicular 3 sx 2000 ear surgery 1 sx wrist surgery 1sx 2017
--- OUTSIDE RECORDS SUMMARY | 2024-12-15 15:02 | XMS_ITS | Patient Health Record ---
Author Organization [facility] Address [address] [place] [address] Care Team Providers Care Rn New Grad Name Role Phone Jasper HAINES, [place] Primary Care Provider Davion Curry [phone] Allergies Allergen (clinical drug ingredient) Drug/Non Drug [...] Problem Status W/U Status Risk Notes Problem Irritable bowel syndrome ([id number]) Irritable bowel syndrome with both constipation and [...] Insured Coverage Start Date Coverage End Date [facility] [address] [place] [phone] [id number] JAYA LOPES Self - patient is the insured [place] [address] [place] [phone] [id number] Self - patient is the insured Medical (General) History Medical History History ICD Code Asthma Denies [place],DM,CVA,renal disease Substance abuse with opiates , including sme IVDA--abstinent since 2016; on Methadone since 2012 Depression and anxiety Surgical History Surgery Date(Month/Year) Testicular surgery-right und escended testicle and possible torsion of the left testicle, and varicocele 2000,2006 Ears pinned 2006 Wrist surgery-Dr. [place] 2016
== END ==
LOC: HO.CARD 12:37
PROVIDERS: PCP Internal Medicine; Visit Provider Internal Medicine
DX: F11.90 Opioid use, unspecified, uncomplicated (principal)
CPT/HCPCS: 93005

== ENCOUNTER → 2024-12-15 12:43 | Outpatient (BNV) | payer OTHER, SELFPAY | PROVIDERS: PCP Internal Medicine; Visit Provider Internal Medicine Cardiovascular Disease | DX: R00.1 Bradycardia, unspecified (principal) | CPT/HCPCS: 93010 ==

== ENCOUNTER 2024-12-22 12:56 | Outpatient (AMB) | payer OTHER, SELFPAY ==
--- OUTSIDE RECORDS SUMMARY | 2023-10-15 08:45 | XMS_ITS ---
Author Organization [facility] Address [address] [place] [address] Care Team Providers Care Senior Quality Assurance Specialist Name Role Phone Ang Hutchinson MD Primary Care Provider UnaJacob Harry Unavailable [phone] Encounters Encounter Location Date Provider Diagnosis [facility] [address] [place] [address] 10/15/2023 Jacob Santiago Plan Of Treatment No Information Progress Notes * Nicole RANDHAWAOB:1995 ( 29 yo M)Acc No.[id number]:10/15/2023 Progress Note Patient: Ovidio RAMOS Provider: Gregoria Santiago DPM :1995 A ge:27 Y S ex:Male Date:10/15/2023 Address:[address] [place] [address] [facility] Pcp:Ang Hutchinson MD Subjective: * Chief Complaints: [...] 0 10/15/2023 Generated for Printi ng/Faxing/eTransmitting on: 02:56 PM EDT
--- OUTSIDE RECORDS SUMMARY | 2024-02-16 09:00 | XMS_ITS ---
Author Organization [facility] Address [address] [place] [address] Care Team Providers Care Public Works Director Name Role Phone Ang Hutchinson MD Primary Care Provider UnaJacob Harry Unavailable [phone] Childers Encounters Encounter Location Date Provider [facility] [address] [address] 02/16/2024 Jacob Santiago Plan Of Treatment No Information Progress Notes * Marquis LOPESNinoskaOB:1995 ( 29 yo M)Acc No.[id number]:02/16/2024 Progress Notes Patient: Ovidio RAMOS Provider: Gregoria Santiago DPM :1995 A ge:28 Y S ex:Male Date:02/16/2024 Address:[address] [place] [address] [id number] Pcp:Ang Hutchinson MD Subjective: * Chief Complaints: [...] Gregoria Santiago DPM Date: 04/18/2023 Generated for Sixtoi leidy/Rabia/eTransmitting on: 02:56 PM EDT
--- NOTE | 2024-12-22 12:59 | MHC.PC.OV ---
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 Required: No Accompanied by: Self / Same As Patient Allergies latex (LATEX) Allergy (Unknown, Verified 12/22/24 13:29) RASH red dye (RED DYE) Allergy (Unknown, Verified 12/22/24 13:29) HIVES Medication List - Last Reconciled 12/22/24 by Ang Hutchinson MD albuterol sulfate 90 mcg/actuation 2 puffs inhalation Q6H PRN clonazepam 1 - 2 mg (1 - 2 x 1 mg) PO BEDTIME PRN 30 days Linzess (linaclotide) 290 mcg PO QAM 30 days NS methadone 175 mg PO DAILY polyethylene glycol 3350 (Miralax) 17 grams PO DAILY 30 days venlafaxine ER 150 mg PO DAILY 30 days Tobacco use date assessed: 12/22/24 Dental Screening Dental Screen Date: 12/22/24 Did you have a dental visit in the last 12 months?: Yes Did you have a dental problem in the last 6 months where you did not have access to dental care?: No Was dental information given to patient?: Patient has dentist HPI Annual Exam HPI Details Patient comes in today for annual physical examination States that he feels okay He denies any headaches or dizziness Denies any chest pains, no shortness of breath No nausea/vomiting, no abdominal pain No change in bowel habits noted He denies any acute urinary symptoms Patient was seen at the emergency room about 3 weeks ago for a left forearm abscess, which is a result of his recent IV drug use as he admits to relapsing again recently although he states that he is now back on track again with quitting his drug use He completed both prescribed Abx (Cephalexin and Doxycycline) a couple of weeks ago and is abscess has completely cleared up since He was not able to get his previously ordered labs done prior to coming in today for his appointment He would also like to get his flu shot today [facility] Medical History Abscess of antecubital fossa Depression Anxiety Asthma Overweight (BMI 25.0-29.9) History of undescended testicle Chronic constipation History of opioid abuse Surgical History History of surgery on right wrist (2018) History of varicocele History of ear surgery (2007) Family History Father Alive and well Mother Hypertension Hypothyroidism Hypercholesteremia Brother Alive and well Maternal Grandfather Myocardial infarction Family/Other Hypertension Diabetes Thyroid disease Maternal Grandmother FH: pancreatic cancer Social History Housing: Apartment Alcohol intake: never Patient Tobacco Use Status: Current everyday Tobacco user Cigarettes Per Day: 5 e-Cigarette/Vaping Use: Never Used Second Hand Smoke Exposure: Yes Substance Use Type: Heroin service: No Current occupational status: disabled Cognitive needs: No Hearing needs: No Vision needs: Yes Questionnaire PHQ-9 Over the last 2 weeks, how often have you been bothered by any of the following problems? 1. Little interest or pleasure in doing things: several days 2. Feeling down, depressed, or hopeless: several days 3. Trouble falling or staying asleep, or sleeping too much: several days 4. Feeling tired or having little energy: several days 5. Poor appetite or overeating: not at all 6. Feeling bad about yourself - or that you are a failure or have let yourself or your family down: several days 7. Trouble concentrating on things, such as reading the newspaper or watching television: not at all 8. Moving or speaking so slowly that other people could have noticed. Or the opposite - being so fidgety or restless that you have been moving around a lot more than usual: not at all 9. Thoughts that you would be better off or of hurting yourself in some way: not at all Total score: 5 Depression Screening Interpretation: Positive Depression Screening Follow-up: Existing condition and In treatment Depression Screening Done: Yes 26308 - PHQ-9 Billing: Yes Source: Developed by Drs. Davion Summers, Hayley Gonzalez, Edis Knott and colleagues, with an educational kathleen from [employer]. Thrive Questionnaire Date Thrive assessed: 12/22/24 I am a: Patient What is your living situation today?: I have a steady place to live Within the past 12 months, did the food you bought not last and you didn't have the money to get more?: Never true Within the past 12 months, did you worry whether your food would run out before you got money to buy more?: Never true Do you have trouble paying for medicines?: No Do you have trouble getting transportation to medical appointments?: No Do you have trouble paying your heating and electricity bill?: No Do you have trouble taking care of your child, family member or friend?: No Do you have trouble with day-to-day activities such as bathing, preparing meals, shopping, managing finances, etc.?: No Are you currently unemployed and looking for a job?: No Are you interested in more education?: No Please select the resources that you would like help with: None Currently or been in a relationship where the following occur: No concerns reported THRIVE Score: 0 AUDIT C Alcohol Use Questionnaire (AUDIT-C) 1. How often do you have a drink containing alcohol?: Never 3. How often do you have six or more drinks on one occasion?: Never Total Score: 0 Score Reviewed/Action Taken: Yes FROYLAN-7 AMB Questionnaire FROYLAN-7 Date FROYLAN - 7 assessed: 04/11/24 Feeling nervous, anxious, or on edge: 1 = Several days Not being able to stop or control worryin = Several days Worrying too much about different things: 1 = Several days Trouble relaxin = Several days Being so restless that it is hard to sit still: 1 = Several days Becoming easily annoyed or irritable: 2 = More than half the days Feeling afraid as if something awful might happen: 0 = Not at all Total FROYLAN-7 score (0-4 normal; 5-9 mild; 10-14 moderate; 15-21 severe): 7 Source: Developed by Drs. Davion Summers, Hayley Gonzalez, Edis Knott and colleagues, with an educational kathleen from [employer]. Review of Systems Const Denies chills, Denies fatigue, Denies fever(s), Denies headache(s), Denies malaise and Denies weakness Eyes Denies blurry vision, Denies change in vision, Denies irritation and Denies itchy eyes ENT Denies dysphagia, Denies dizziness, Denies otalgia, Denies headache(s), Denies nasal congestion, Denies neck pain, Denies odynophagia and Denies sore throat Card Denies chest pain, Denies rapid heart rate, Denies irregular heart rhythm, Denies palpitations and Denies dyspnea Resp Denies chest congestion, Denies cough, Denies dyspnea and Denies wheezing GI Denies abdominal pain, Denies bloating, Denies constipation, Denies dysphagia, Denies heartburn, Denies diarrhea, Denies nausea, Denies odynophagia and Denies vomiting Denies hematuria, Denies difficulty urinating, Denies dysuria, Denies urinary frequency and Denies urinary urgency Musc Denies back pain, Denies arthralgias, Denies joint swelling, Denies muscle weakness and Denies neck pain Skin/Breast Denies change in pigmentation, Denies lesions, Denies rash and Denies unusual bruising Neuro Denies dizziness, Denies headache(s), Denies paresthesias and Denies weakness Endo Denies fatigue and Denies palpitations Aller/Immun Denies itchy eyes and Denies wheezing Physical exam (Primary Care) Vital Signs: Last Vital Signs Pulse 80 12/22/24 13:00 BP 110/80 12/22/24 13:00 Pulse Ox 97 12/22/24 13:00 Oxygen Delivery Method Room Air 12/22/24 13:00 BMI result Body Mass Index 24.4 Tobacco/Smoking Status: Tobacco use Status Tobacco use date assessed 12/22/24 12/22/24 13:09 Patient Tobacco Use Status Current everyday Tobacco 12/22/24 13:09 e-Cigarette/Vaping Use Never Used 12/22/24 13:09 PHQ-9: PHQ-9 Score PHQ-9: Total score 5 12/23/24 07:47 Depression Screening Interpretation: Positive Depression Screening Follow-up: Existing condition and In treatment Thrive Assessment: Date of Thrive Assessment Date Thrive assessed 12/22/24 12/23/24 07:47 Currently or been in a relationship where the following occur: No concerns reported Const General: no acute distress, alert and awake Orientation/consciousness: patient oriented x3 HENMT Head: Yes normocephalic and Yes atraumatic Ears: external ears normal, TM's normal bilaterally and EAC's normal General nose exam: No nasal discharge present Face and sinus: Yes normal facial exam and Yes sinuses nontender Teeth and gingiva: dentition normal Throat: Yes posterior oropharynx normal and Yes tonsils normal (no TP congestion) Eyes Eyelids: Yes eyelids normal Conjunctivae: conjunctivae normal Pupils: Equal, round and reactive pupils present EOM: EOMs intact bilaterally Neck Neck: Yes no lymphadenopathy and Yes supple Thyroid: Thyroid normal Resp Auscultation: clear to auscultation bilaterally, no rales and no wheezes Cardio Rate: regular rate Rhythm: regular rhythm Heart sounds: no murmurs GI Palpation (GI): Soft to palpation, nontender and No hepatosplenomegaly present Auscultation: normal bowel sounds General: Yes no CVA tenderness Back/Spine/Pelvis Back: no CVA tenderness Thoracic/Lumbar Spine: thoracic and lumbar spine normal to inspection Skin Lesions: no lesions Rashes: no rashes Neuro General: patient oriented x3, moves all extremities, no focal motor deficits and CN's II-XI intact bilaterally Cranial nerves: Yes Equal, round and reactive pupils present Cognition (Neuro): normal cognition Gait exam (Neuro): Normal gait present Extrem General: Yes no clubbing, cyanosis or edema Office Procedures Flu Questionnaire Does the patient have a severe egg allergy?: No Does the patient have severe life threatening allergies?: No Does the patient have a fever or illness today?: No Has the patient ever had Guillain-[place] Syndrome?: No Has the patient ever had any past reaction to a flu shot?: No Immunizations Fluarix [id number] (PF) 45 mcg (15 mcg x 3)/0.5 mL IM syringe Performing Provider: Ang Hutchinson MD [facility] Administered by: RAI Goss on 12/22/24 13:45 Dose Route Admin Location Dispensed Lot Number Expiration Date [facility] Ent Nurse 0.5 mL IM Left Deltoid 0.5 mL [id number] 08/28/25 [id number] [employer] VIS Given Date VIS Provided VIS Publication Date 12/22/24 Single Vaccine 24 Eligibility Eligibility Date Funding Source Not [facility] Eligible 12/22/24 Private Coding Level of Care Code Est Pt Prev Care 18-39y(66144) Diagnoses Annual physical exam Z00.00 Moderate persistent asthma without complication J45.40 Asthma severity: moderate Asthma persistence: persistent Asthma complication type: uncomplicated Constipation due to opioid therapy K59.03; T40.2X5A 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 Anxiety F41.9 Episode of recurrent major depressive disorder, unspecified depression episode severity F33.9 Depression Type: major depressive disorder Major depression recurrence: recurrent Active/Remission status: currently active Major depression episode severity: unspecified Overweight (BMI 25.0-29.9) E66.3 Additional Codes PHQ-9 - 59395 - PHQ-9 Billing: Yes ([id number]) Assessment & Plan Assessment & Plan (1) Annual physical exam: Code(s): Z00.00 - Encounter for general adult medical examination without abnormal findings Category: Medical Plan: Check labs SHERRI to complete his annual exam today - have instructed patient to just use his current orders (updated) for his lab draw (2) Asthma: Code(s): J45.909 - Unspecified asthma, uncomplicated Category: Medical Qualifiers: Asthma severity: moderate Asthma persistence: persistent Asthma complication type: uncomplicated Qualified Code(s): J45.40 - Moderate persistent asthma, uncomplicated Plan: Controlled Continue Flovent HFA 110 mcg 1 inhalation BID and Albuterol HFA 1 to 2 inhalations Q 6 hours PRN (3) Constipation due to opioid therapy: Code(s): K59.03 - Drug induced constipation; T40.2X5A - Adverse effect of other opioids, initial encounter Category: Medical Plan: His constipation has been better controlled on his current Rx - is mostly related to his Methadone Rx He is encouraged again to increase his oral fluids and dietary fiber intake Continue MiraLax 17 gm QD and Linzess 290 mcg Q AM (4) Methadone use: Code(s): F11.90 - Opioid use, unspecified, uncomplicated Category: Medical Plan: Continue Methadone 175 mg QD Follow up with the Methadone Clinic as scheduled Patient suffered a relapse in his drug use a few weeks ago, resulting in an abscess at the IVDA site on his left forearm, which has resolved with recent Abx Tx His repeat EKG done last week came out again as sinus bradycardia but now has some T wave inversions in the anterior leads when comparedto last year; there is no QT prolongation noted (5) Anxiety: Code(s): F41.9 - Anxiety disorder, unspecified Category: Medical Plan: Continue Clonazepam 1 mg 1 to 2 tablets Q HS PRN (6) Depression: Code(s): F32.A - Depression, unspecified Category: Medical Qualifiers: Depression Type: major depressive disorder Major depression recurrence: recurrent Active/Remission status: currently active Major depression episode severity: unspecified Qualified Code(s): F33.9 - Major depressive disorder, recurrent, unspecified Plan: Continue Venlafaxine ER 150 mg QD and Gabapentin 600 mg 1 tablet at 6 am, 1.5 tablets at 1 PM and 2 tablets at bedtime orally 3 times a day Follow-up with Psychiatry as scheduled (7) Overweight (BMI 25.0-29.9): Code(s): E66.3 - Overweight Category: Medical Plan: Reinforced diet/exercise as tolerated/lose weight Plan Per request, flu vaccine given to the patient today Follow up in 6 months Orders: Orders Influenza [id number] Immunization 12/22/24 Z23 - Encounter for immunization
[2024-12-22 13:00] VITALS: BP 110/80; PULSE 80; O2SAT 97; BMI 24.4
--- OUTSIDE RECORDS SUMMARY | 2024-12-22 14:57 | XMS_ITS | Patient Health Record ---
Author Organization [facility] [place] Address [address] [place] [address] Care Team Providers Care Pulper Tender Name Role Phone Jasper HAINES, [place] Primary Care Provider Jacob Fernandez Unavailable [phone] Allergies Allergen (clinical drug ingredient) Drug/Non Drug [...] Ordered Date Performed Result Body Sit e 18247-CSRR SKIN LESIONS, OVER 4 02/09/2024 N/A [id number] DYSTROPHIC NAILS ANY # 02/09/2024 N/A Encounters Encounter Location Date Provider Diagnosis [facility] [address] 02/09/2024 Jacob Santiago Pain in right ankle and joints of right foot M25.571 ; Pain in left ankle and joints of left foot M25.572 ; Flat foot [pes planus] (acquired), right foot M21.41 ; Flat foot [pes planus] (acquired), left foot M21.42 ; Keratosis L57.0 and Onychodystrophy L60.3 [facility] [address] 03/07/2024 Jacob Santiago Assessments Encounter Date Diagnosis [...] Treatment Pending Test Test Name Order Date 68177-EERF SKIN LESIONS, OVER 4 10/16/19 21 21369-ROAY SKIN LESIONS, OVER 4 02/09/20 24 [id number] DYSTROPHIC NAILS ANY # Insurance Providers Payer Name Payer Address Payer Phone Subscriber Number Group Number Insured Name Patient Relationship to Insured Coverage Start Date Coverage End Date [facility] [employer] Claims [address] [place] [id number] Ovidio Randhawa Self - patient is the insured Medical (General) History Medical History History ICD Code Anxiety asthma Depression Surgical History Surgery Date(Month/Year) testicular 3 sx 2000 ear surgery 1 sx wrist surgery 1sx 2017
--- OUTSIDE RECORDS SUMMARY | 2024-12-22 14:57 | XMS_ITS | Patient Health Record ---
Author Organization [facility] Address [address] [place] [address] Care Team Providers Care Hvac Residential Service Technician Name Role Phone Jasper HAINES, Ang Primary Care Provider Davion Curry [phone] Allergies Allergen (clinical drug ingredient) Drug/Non Drug [...] Status Risk Notes Problem Irritable bowel syndrome ([id number]) Irritable bowel syndrome with both constipation and [...] Insured Coverage Start Date Coverage End Date [facility] [address] [place] [phone] [id number] JAYA LOPES Self - patient is the insured MEDICAID OF [employer] [address] [place] [address] [id number] Self - patient is the insured Medical (General) History Medical History History ICD Code Asthma Denies MT,DM,CVA,renal disease Substance abuse with opiates , including sme IVDA--abstinent since 2016; on Methadone since 2012 Depression and anxiety Surgical History Surgery Date(Month/Year) Testicular surgery-right und escended testicle and possible torsion of the left testicle, and varicocele 2000,2006 Ears pinned 2006 Wrist surgery-Dr. Ny 2016
== END 2024-12-22 13:46 | disposition home or self-care (01) ==
LOC: HO.HMCH 12:57
PROVIDERS: PCP Internal Medicine; Visit Provider Internal Medicine
DX: Z23 Encounter for immunization (principal)

== ENCOUNTER → 2024-12-22 12:56 | Outpatient (BNVA) | payer OTHER, SELFPAY | PROVIDERS: PCP Internal Medicine; Visit Provider Internal Medicine | DX: Z00.00 Encounter for general adult medical examination without abnormal findings (principal); J45.40 Moderate persistent asthma, uncomplicated; K59.03 Drug induced constipation; F11.90 Opioid use, unspecified, uncomplicated; F41.9 Anxiety disorder, unspecified; F33.9 Major depressive disorder, recurrent, unspecified; E66.3 Overweight; T40.2X5A Adverse effect of other opioids, initial encounter; Z23 Encounter for immunization; Z68.24 Body mass index [BMI] 24.0-24.9, adult | CPT/HCPCS: 90471; 90656; 96127; 99395 ==